=== PATIENT | female | born 1940 | race Caucasian/White ===

== ENCOUNTER → 2018-02-06 13:17 | Outpatient (CLI) | payer MEDICARE, OTHER, SELFPAY | PROVIDERS: PCP Internal Medicine; Visit Provider Psychiatry & Neurology Neurology | DX: Z78.0 Asymptomatic menopausal state (principal); E07.9 Disorder of thyroid, unspecified; Z90.722 Acquired absence of ovaries, bilateral; Z82.62 Family history of osteoporosis; R29.890 Loss of height; Z85.118 Personal history of other malignant neoplasm of bronchus and lung | CPT/HCPCS: 77080 ==

== ENCOUNTER → 2018-04-26 16:27 | Outpatient (CLI) | payer MEDICARE, OTHER, SELFPAY ==
--- NOTE | 2018-04-26 | DI.RAD.S_ITS ---
PROCEDURE: XR THORACIC SPINE 3V INDICATIONS: DORSALGIA TECHNIQUE: 3 views of the thoracic spine were acquired. COMPARISON: None. FINDINGS: Bones: No thoracic compression deformities. Mild level disc desiccation as well small anterior osteophytes are present throughout the thoracic spine. No suspicious bony lesions. 12 pairs of ribs are noted, and appear intact where visualized. Soft tissues: No paravertebral stripe thickening. IMPRESSION: Multilevel degenerative changes. Please see lumbar spine x-ray report of 04/26/18 for details of endplate deformity at L2. Dictated by: Valerie Hamilton M.D. on 04/27/2018 at 14:45 Approved by: Valerie Hamilton M.D. on 04/27/2018 at 14:46
--- NOTE | 2018-04-26 | DI.RAD.S_ITS ---
PROCEDURE: XR LUMBAR SPINE 2-3V INDICATIONS: DORSALGIA TECHNIQUE: 3 views of the lumbar spine were acquired. COMPARISON: [facility], CT, ABDOMEN/PELVIS WITHOUT CONTRAS, 07/04/2013, 10:19. [facility], CR, L-SPINE 2-3 VIEWS, 01/17/2013, 10:54. FINDINGS: Bones: 5 [id number] vertebrae are present. There is trace retrolisthesis of L2 and L3, L3 on L4, L5 on S1. There is moderate disc space narrowing at L4-5, mild to moderate remainder of the lumbar spine. Severe foraminal narrowing is present L5-S1, mild to moderate at L3-4. There is a superior endplate deformity at L2 with an approximate 31% compression. This is new compared to 07/04/13. No vertebral body compression fractures. No suspicious bony lesions. Soft tissues: Overlying bowel gas pattern is normal. No suspicious soft tissue calcifications. IMPRESSION: 1. Multilevel degenerative changes most severe at L4-5 and L5-S1. 2. 31% compression deformity at L2 as above. Chronicity is considered indeterminate. However, it is new compared to most recent prior exam of 07/04/13. Recommend correlation to patient pain and history. If further evaluation is warranted, MRI may be obtained. Dictated by: Valerie Hamilton M.D. on 04/27/2018 at 14:43 Approved by: Valerie Hamilton M.D. on 04/27/2018 at 14:45
--- NOTE | 2018-04-26 | DI.RAD.S_ITS ---
PROCEDURE: XR CERVICAL SPINE 4V OR 5V INDICATIONS: DORSALGIA TECHNIQUE: 5 views of the cervical spine acquired. COMPARISON: [facility], , CERVICAL SPINE 2 OR 3 VIEWS, 01/17/2013, 10:54. FINDINGS: Bones: No fractures or dislocations to the C7-T1 level. There is severe disc space narrowing at C5-6 with trace retrolisthesis. Mild disc space narrowing is present at C4-5 and C6-7. Prominent anterior osteophytes are present at C6 and C7, lesser degree C4 and C3. Oblique images demonstrate foraminal narrowing within the mid thoracic spine. Soft tissues: No prevertebral soft tissue swelling. IMPRESSION: Degenerative changes most prominent at C5-6, demonstrating interval progression compared to prior exam. Dictated by: Valerie Hamilton M.D. on 04/27/2018 at 14:14 Approved by: Valerie Hamilton M.D. on 04/27/2018 at 14:16
== END ==
PROVIDERS: PCP Physician Assistant; Visit Provider Physician Assistant
DX: M50.322 Other cervical disc degeneration at C5-C6 level (principal); M51.36 Other intervertebral disc degeneration, lumbar region; M48.02 Spinal stenosis, cervical region; M51.37 Other intervertebral disc degeneration, lumbosacral region; M48.061 Spinal stenosis, lumbar region without neurogenic claudication; M48.07 Spinal stenosis, lumbosacral region; M51.34 Other intervertebral disc degeneration, thoracic region; M48.04 Spinal stenosis, thoracic region; M54.9 Dorsalgia, unspecified
CPT/HCPCS: 72050; 72072; 72100

== ENCOUNTER → 2018-12-24 16:29 | Outpatient (CLI) | payer MEDICARE, OTHER, SELFPAY ==
--- NOTE | 2018-12-24 | DI.RAD.S_ITS ---
PROCEDURE: XR LUMBAR SPINE 2-3V INDICATIONS: right hip pain TECHNIQUE: 5 views of the lumbar spine were acquired. COMPARISON: [facility], CR, XR LUMBAR SPINE 2-3V, 04/26/2018, 16:35. FINDINGS: Bones: 5 [id number]-dln-[id number] vertebrae are present. Chronic appearing anterior wedge compression deformity involving superior endplate of L2 is again seen with up to 20% loss of L2 vertebral body height anteriorly. There is mild superior endplate compression involving L3 vertebral body, new since previous study. Degenerative endplate changes and bilateral facet arthrosis throughout lumbar spine most prominent at L4-5 and L5-S1 levels are seen. Findings are essentially unchanged from No suspicious bony lesions. Soft tissues: Overlying bowel gas pattern is normal. No suspicious soft tissue calcifications. IMPRESSION: Acute and subacute-appearing mild superior endplate compression at L3 level, new since 2018 study. Chronic appearing anterior wedge compression deformity at L2 level. Degenerative disc disease throughout lower thoracic and lumbar spine. Dictated by: Severino Lara M.D. on 12/24/2018 at 17:05 Approved by: Severino Lara M.D. on 12/24/2018 at 17:07
--- NOTE | 2018-12-24 | DI.RAD.S_ITS ---
PROCEDURE: XR HIP W PEL IF DONE RT 2V INDICATIONS: right hip pain TECHNIQUE: AP pelvis with lateral view(s) of the right hip(s). COMPARISON: None. FINDINGS: Bones: Symmetric-appearing mild bilateral hip joint osteophyte is seen. No fractures or dislocations. Pelvic ring appears intact. No suspicious bony lesions. Soft tissues: The visualized bowel gas pattern is normal. No suspicious soft tissue calcifications. IMPRESSION: Mild bilateral hip joint osteoarthritis. No fracture or dislocation. No evidence of avascular necrosis. Dictated by: Severino Lara M.D. on 12/24/2018 at 17:07 Approved by: Severino Lara M.D. on 12/24/2018 at 17:08
== END ==
PROVIDERS: Visit Provider Internal Medicine
DX: M25.551 Pain in right hip (principal); M16.0 Bilateral primary osteoarthritis of hip; M51.16 Intervertebral disc disorders with radiculopathy, lumbar region
CPT/HCPCS: 72100; 73502

== ENCOUNTER → 2018-12-31 13:32 | Outpatient (CLI) | payer MEDICARE, OTHER, SELFPAY ==
--- NOTE | 2018-12-31 14:20 | DI.CT.S_ITS ---
PROCEDURE: CT CHEST ABD PEL W CON INDICATIONS: HISTORY OF LUNG CANCER TECHNIQUE: After the administration of oral and intravenous contrast, 5 mm thick sections acquired from the lung apices to the symphysis. 5 mm coronal and sagittal reformats were performed, with additional 7 mm coronal MIP reformats through the lungs. For radiation dose reduction, the following was used: automated exposure control, adjustment of mA and/or kV according to patient size. COMPARISON: None. FINDINGS: Image quality: Excellent. CHEST: Lungs and pleura: No acute consolidation. Scattered scarring/atelectasis. Left pneumonectomy postsurgical changes. No pleural effusions or pneumothorax. Central and peripheral airways appear patent and normal in caliber. Mediastinum: Heart size is normal. No pericardial effusion. No mediastinal or hilar adenopathy by size criteria. Thoracic aorta and central pulmonary arteries are normal in size. Esophagus is normal in caliber. No hiatal hernia. Chest wall: No axillary or supraclavicular adenopathy by size criteria. Thyroid gland is within normal limits. ABDOMEN: Solid organs: Low attenuation hepatic cyst on image 66. Gallbladder grossly unremarkable. Biliary system is non dilated. Pancreas enhances normally. Spleen is normal in size and enhancement. No adrenal nodules. Kidneys demonstrate normal size and enhancement, without hydronephrosis. Peritoneum and bowel: Bowel loops demonstrate normal wall thickness and caliber. No free fluid or air. Large amount of stool. Nodes and vessels: No retroperitoneal or mesenteric adenopathy by size criteria. Aorta and inferior vena cava are normal in size. Miscellaneous: No ventral hernias. PELVIS: Genitourinary: Bladder wall thickness is normal. Miscellaneous: No inguinal hernias or adenopathy. Bones: No suspicious bony lesions. No vertebral body compression fractures. IMPRESSION: No specific evidence of recurrent or residual tumor. Cardiomegaly. Hepatic cyst. Dictated by: Low Ny M.D. on 12/31/2018 at 16:24 Approved by: Low Ny M.D. on 12/31/2018 at 16:32
== END ==
PROVIDERS: PCP Internal Medicine; Visit Provider Internal Medicine
DX: I51.7 Cardiomegaly (principal); K76.89 Other specified diseases of liver; Z85.118 Personal history of other malignant neoplasm of bronchus and lung
CPT/HCPCS: 71260; 74177; Q9967

== ENCOUNTER → 2019-02-04 15:12 | Outpatient (CLI) | payer MEDICARE, OTHER, SELFPAY ==
--- NOTE | 2019-02-04 | DI.RAD.S_ITS ---
PROCEDURE: XR TMJ BI INDICATIONS: CANNOT COMPLETELY OPEN AND CLOSE MOUTH TECHNIQUE: 6 view(s) of the temporomandibular joints acquired. COMPARISON: None. FINDINGS: Bones: No fractures or dislocations. No suspicious bony lesions. Soft tissues: No suspicious soft tissue calcifications. IMPRESSION: No dislocation of the temporomandibular joints identified. No aggressive appearing osseous lesion. MRI with contrast Of the TMJ may be helpful for further assessment. Dictated by: Carlos Day M.D. on 02/04/2019 at 17:25 Approved by: Carlos Day M.D. on 02/04/2019 at 17:28
== END ==
PROVIDERS: PCP Internal Medicine; Visit Provider Internal Medicine
DX: M26.609 Unspecified temporomandibular joint disorder, unspecified side (principal)
CPT/HCPCS: 70330

== ENCOUNTER → 2019-09-09 09:59 | Outpatient (CLI) | payer MEDICARE, OTHER, SELFPAY ==
[2019-09-10 09:59] LABS: Osmolality Urine 356 mOsmol/kg (.)
[2019-09-11 12:40] LABS: Albumin 0 % (.); M-Spike % Not Observed % (Not Observed); Protein, Total, 24 hr urine 155 mg/24 hr (30-150); Total Urine Protein 4.2 mg/dL (Not Estab.)
== END ==
PROVIDERS: Family Provider Internal Medicine; PCP Internal Medicine; Referring Provider Internal Medicine; Visit Provider Internal Medicine
DX: R25.2 Cramp and spasm (principal); R79.9 Abnormal finding of blood chemistry, unspecified
CPT/HCPCS: 83935; 84156; 84166

== ENCOUNTER → 2019-10-21 09:36 | Outpatient (CLI) | payer MEDICARE, OTHER, SELFPAY ==
[2019-10-21 11:23] LABS: Collection Time Urine 24 Hours; Creatinine 24 Hour Urine 786 mg/day (800-1800); Creatinine Urine Random 29.1 mg/dL; Protein (Total) Urine Random 13 mg/dL (0-12); Total Protein 24 Hour Urine 351 mg/day (42-225); Total Volume Urine 2700 mL
== END ==
PROVIDERS: Family Provider Internal Medicine; PCP Internal Medicine; Referring Provider Internal Medicine; Visit Provider Internal Medicine
DX: R25.2 Cramp and spasm (principal); R79.9 Abnormal finding of blood chemistry, unspecified
CPT/HCPCS: 82570; 84156

== ENCOUNTER 2020-03-22 11:43 | Emergency (ER) | payer MEDICARE, OTHER, SELFPAY ==
--- NOTE | 2020-03-22 12:03 | DI.RAD.S_ITS ---
PROCEDURE:3 XR HAND RT MIN 3V INDICATIONS: fall TECHNIQUE: 3 views of the hand(s) acquired. COMPARISON: None. FINDINGS: Bones: No fractures or dislocations. Carpal bones are normally aligned. Joint space narrowing and osteophyte formation of the 1st carpometacarpal joint and the 1st metacarpophalangeal joint. There is also joint space narrowing osteophyte formation of the 5th distal interphalangeal joint. No suspicious bony lesions. Soft tissues: No suspicious soft tissue calcifications. IMPRESSION: No acute bony abnormality. Degenerate changes of the hand. Dictated by: Arjun Burkett M.D. on 03/22/2020 at 11:17 Approved by: Arjun Burkett M.D. on 03/22/2020 at 11:20
[2020-03-22 12:05] VITALS: BP 144/70; PULSE 71; RESP 16; TEMP 36.9; O2SAT 98; BMI 23.3
--- NOTE | 2020-03-22 12:55 | DI.RAD.S_ITS ---
PROCEDURE: XR CERVICAL SPINE 2V OR 3V INDICATIONS: pain fall last night TECHNIQUE: 3 view(s) of the cervical spine were acquired. COMPARISON: [facility], CR, XR CERVICAL SPINE 4V OR 5V, 04/26/2018, 16:35. FINDINGS: Bones: No fractures or dislocations to the C7-T1 level. The lateral masses of C1 appear intact on the odontoid view. No suspicious bony lesions. There is multilevel facet arthrosis. Distally there is multilevel intervertebral disc height loss, marked at the C5-6 level. Soft tissues: No prevertebral soft tissue swelling. IMPRESSION: No radiographic evidence of an acute cervical spine fracture. Multilevel cervical spondylosis, most apparent at C5-6. Dictated by: Arjun Burkett M.D. on 03/22/2020 at 12:54 Approved by: Arjun Burkett M.D. on 03/22/2020 at 12:55
--- NOTE | 2020-03-22 12:57 | ED.UPPEXIN ---
HPI - Extremity Injury (Upper) General Chief Complaint: Extremity Injury, Upper Stated Complaint: Fall, Hurt Right Thumb Time Seen by Provider: 03/22/20 12:45 Source: patient Mode of arrival: Ambulatory Limitations: no limitations History of Present Illness HPI narrative: Patient is a 79-year-old female who presents with right hand and thumb pain. She slipped on the bathroom rug last evening falling catching herself with her hand. She immediately had pain in her right thenar eminence. She iced it and took some Aleve. Last night it was throbbing no. Today she complains of increased pain. No numbness or tingling. She also has had complaining of some cervical pain as well. She denies any head injury or loss of consciousness MD complaint: injury to: right and hand Onset (ago): hour(s) Related Data Home Medications Medication Instructions Recorded Confirmed [OXYCODONE] #0 03/13/16 [PREDNISONE] #0 03/13/16 hydrocodone-acetaminophen 1 tab PO Q4HP PRN #0 tab 03/13/16 levothyroxine [Synthroid] 137 mcg PO QAM #0 tab 03/13/16 liothyronine [Cytomel] 5 mcg PO BID #0 tab 03/13/16 sertraline 75 mg PO QDAY #0 tab 03/13/16 prochlorperazine maleate 5 mg PO #0 05/30/16 [Compazine] prochlorperazine maleate PO #0 05/30/16 [Compazine] Previous Rx's Medication Instructions Recorded fluconazole [Diflucan] 150 mg PO QDAY #2 tab 03/13/16 nitrofurantoin monohyd/m-cryst 100 mg PO Q12H #10 cap 03/13/16 [Macrobid] Allergies Allergy/AdvReac Type Severity Reaction Status Date / Time doxycycline [DOXYCYCLINE] Allergy Mild RASH Unverified 01/22/20 08:54 ondansetron Allergy Mild HALLUNCINAT Unverified 01/22/20 08:54 [From ZOFRAN ( IONS HYDROCHLORIDE)] Sulfa (Sulfonamide Allergy Mild RASH Unverified 01/22/20 08:54 Antibiotics) [SULFA (SULFONAMIDE ANTIBIOTICS)] Review of Systems Review of Systems Narrative: GENERAL: Denies chills, fatigue, malaise, fever, sweats, travel HEENT: Denies sinus pain, ear pain, sore throat, difficulty swallowing, neck pain RESPIRATORY: Denies dyspnea, cough, wheezing, hemoptysis, sputum. CARDIOVASCULAR: Denies chest pain, palpitations, orthopnea, edema GASTROINTESTINAL: Denies nausea, vomiting, abdominal pain, diarrhea, constipation, melena. : Denies dysuria, frequency, incontinence, hematuria, urinary retention, flank pain. MUSCULOSKELETAL: See HPI SKIN: No rash, no erythema, no pruritus NEUROLOGIC: Denies weakness, dizziness, headache, numbness, change in speech, confusion PSYCHIATRIC: No concerning psychosocial issues. 12 point review of systems is negative except for those stated above and HPI Patient History Social History Smoking Status: Never smoker Smoking Status: Never smoker alcohol intake frequency: 0-2 drinks per day Alcohol type: wine Substance Use Type: does not use Exam Initial Vital Signs Initial Vital Signs: Vital Signs Temperature 98.4 F 03/22/20 12:05 Pulse Rate 71 03/22/20 12:05 Respiratory Rate 16 03/22/20 12:05 Blood Pressure 144/70 H 03/22/20 12:05 Pulse Oximetry 98 03/22/20 12:05 GENERAL: Well-appearing, well-nourished and in no acute distress. HEENT: Head atraumatic,EOMI, pupils reactive, face symmetric, moist mucous membranes Neck: Mild midline vertebral tenderness throughout but no localization more paracervical muscle tenderness bilaterally. No step-off CARDIOVASCULAR: Regular rate and rhythm without murmurs, rubs or gallops. RESPIRATORY: Breath sounds equal bilaterally, no wheezes rales or rhonchi. EXTREMITIES: Normal range of motion, no clubbing or edema. Swelling contusion noted in right thenar eminence Neurovascularly intact. NEUROLOGICAL: Alert and oriented x4.Normal gait and speech. SKIN: Warm, dry, no laceration, no petechiae, no rashes or lesions. Course Orders Ordered: ED Orders 03/22/20 12:03 XR hand RT min 3V Stat 03/22/20 12:55 XR cervical spine 2V or 3V Stat Vital Signs Vital signs: Vital Signs - 8 hr 03/22/20 12:05 03/22/20 14:03 Temperature 98.4 F Pulse Rate 71 80 Respiratory Rate 16 16 Blood Pressure 144/70 H 136/78 Pulse Oximetry 98 97 MDM - Extremity Injury (Upper) Imaging Data Extremity x-ray #1: Radiologist's Impression: PROCEDURE:3 XR HAND RT MIN 3V INDICATIONS: fall TECHNIQUE: 3 views of the hand(s) acquired. COMPARISON: None. FINDINGS: Bones: No fractures or dislocations. Carpal bones are normally aligned. Joint space narrowing and osteophyte formation of the 1st carpometacarpal joint and the 1st metacarpophalangeal joint. There is also joint space narrowing osteophyte formation of the 5th distal interphalangeal joint. No suspicious bony lesions. Soft tissues: No suspicious soft tissue calcifications. IMPRESSION: No acute bony abnormality. Degenerate changes of the hand. Dictated by: Arjun Burkett M.D. on 03/22/2020 at 11:17 XR cervical: Radiologist's Impression: PROCEDURE: XR CERVICAL SPINE 2V OR 3V INDICATIONS: pain fall last night TECHNIQUE: 3 view(s) of the cervical spine were acquired. COMPARISON: [facility], XR CERVICAL SPINE 4V OR 5V, 04/26/2018, 16:35. FINDINGS: Bones: No fractures or dislocations to the C7-T1 level. The lateral masses of C1 appear intact on the odontoid view. No suspicious bony lesions. There is multilevel facet arthrosis. Distally there is multilevel intervertebral disc height loss, marked at the C5-6 level. Soft tissues: No prevertebral soft tissue swelling. IMPRESSION: No radiographic evidence of an acute cervical spine fracture. Multilevel cervical spondylosis, most apparent at C5-6. Dictated by: Arjun Burkett M.D. on 03/22/2020 at 12:54 Approved by: Arjun Burkett M.D. on 03/22/2020 at 12:55 Discharge Plan Departure Patient Disposition: Home Clinical Impression: Contusion of hand, right Qualifiers: Encounter type: initial encounter Qualified Code(s): S60.221A - Contusion of right hand, initial encounter Cervical muscle strain Qualifiers: Encounter type: initial encounter Qualified Code(s): S16.1XXA - Strain of muscle, fascia and tendon at neck level, initial encounter Discharge Date/Time: 03/22/20 14:03 Instructions: Contusion Activity Restrictions/Additional Instructions: *You have been diagnosed with right hand contusion and cervical strain *What to do: Elevate arm to help with swelling may ice 20-30 minutes at a time then removed *Continue to take medications as directed Aleve 250 mg every 6 hours if needed for pain *Follow up with your primary care provider in 2-3 days *Return to ER if you should have increased pain numbness tingling or weakness or any new, worsening or concerning symptoms Prescriptions: No Action levothyroxine [Synthroid] 137 MCG tablet 137 mcg PO QAM Qty: 0 RF: 0 liothyronine [Cytomel] 5 MCG tablet 5 mcg PO BID Qty: 0 RF: 0 sertraline 50 MG tablet 75 mg PO QDAY Qty: 0 RF: 0 hydrocodone-acetaminophen 7.5 MG/325 MG tablet 1 tab PO Q4HP PRNQty: 0 RF: 0 [OXYCODONE] Qty: 0 RF: 0 [PREDNISONE] Qty: 0 RF: 0 fluconazole [Diflucan] 150 MG tablet 150 mg PO QDAY Qty: 2 RF: 0 nitrofurantoin monohyd/m-cryst [Macrobid] 100 MG capsule 100 mg PO Q12H Qty: 10 RF: 0 prochlorperazine maleate [Compazine] 5 mg tablet PO Qty: 0 RF: 0 prochlorperazine maleate [Compazine] 5 MG tablet 5 mg PO Qty: 0 RF: 0 Referrals: Shereen Coronado MD [Primary Care Provider] -
[2020-03-22 14:03] VITALS: BP 136/78; PULSE 80; RESP 16; O2SAT 97
== END 2020-03-22 14:03 | disposition home or self-care (01) ==
PROVIDERS: Emergency Provider Emergency Medicine; Family Provider Internal Medicine; PCP Internal Medicine
DX: S60.221A Contusion of right hand, initial encounter (principal); S16.1XXA Strain of muscle, fascia and tendon at neck level, initial encounter; W19.XXXA Unspecified fall, initial encounter
CPT/HCPCS: 72040; 73130; 99283

== ENCOUNTER 2020-05-24 09:34 | Emergency (ER) | payer MEDICARE, OTHER, SELFPAY ==
[2020-05-24] VITALS (38 sets, daily range): BP systolic 113–176; BP diastolic 52–101; PULSE 72–162; RESP 14–37; O2SAT 92–99; BMI 23.6
--- NOTE | 2020-05-24 09:27 | ED.CHESTPAIN ---
HPI - Chest Pain General Chief Complaint: Chest Pain Stated Complaint: Chest Pain [id number] Time Seen by Provider: 05/24/20 09:38 Source: patient, family () and EMS Mode of arrival: EMS Limitations: no limitations History of Present Illness HPI narrative: This is a 79-year-old female who comes to the emergency department with complaint of chest pain and shortness of breath intermittently for the last 6 weeks. Patient states it does seem to be more positional particularly when she is lying flat. Patient states that the episode today was longer in duration than typical. Typically they were 20-30 minutes. She has not had any fevers. Today she did note that she had a headache that quickly resolved. She noted that she was short of breath particularly in flat with chest pressure she initially noticed about 1:00 a.m. this morning may use several pillows to prop her up which helped but then again this morning she felt significantly short of breath and EMS was contacted. She also noted that she had a cough which was new and she produced some yellow thick sputum. No hemoptysis. She has had some slight nausea but no vomiting. She had some mild diarrhea today but no black or bloody stool. No urinary symptoms. No swelling in her extremities. She had been in contact with primary care and her cardiothoracic surgeon, they had her evaluated by Cardiology and she had a perfusion stress test which is negative for ischemia by symptom and EKG criteria there were PACs, PVCs and ventricular couplets present. Normal exercise tolerance perfusion imaging showed no evidence of myocardial ischemia or injury gated SP ECT showed mildly dilated left ventricle with moderate global hypokinesis and estimated EF of 39% with normal wall motion. An intermediate risk stress imaging study. There is also incidental finding of focal radioisotope 8 uptake in the right upper chest wall which her CVT surgeon stated was her port. She has not had her actual follow-up visit by telemedicine with the canvas shop laborer but does have the report with her today. Patient has a history significant for lung cancer with a mass removed 10 years ago, lymphoma approximately 4 years ago she was treated with chemo and has completed her therapy. She still has a port present. She does currently take any anticoagulants, cholesterol, diabetes or hypertension medications. She does take a hypothyroid medication, cytomel and daily for chronic shoulder pain. Related Data Home Medications Medication Instructions Recorded Confirmed [OXYCODONE] #0 03/13/16 [PREDNISONE] #0 03/13/16 hydrocodone-acetaminophen 1 tab PO Q4HP PRN #0 tab 03/13/16 05/24/20 levothyroxine [Synthroid] 137 mcg PO QAM #0 tab 03/13/16 05/24/20 liothyronine [Cytomel] 5 mcg PO BID #0 tab 03/13/16 05/24/20 sertraline 100 mg PO QDAY #0 tab 03/13/16 05/24/20 prochlorperazine maleate 5 mg PO #0 05/30/16 [Compazine] prochlorperazine maleate PO #0 05/30/16 [Compazine] atenolol 25 mg PO BID 05/24/20 05/24/20 dextroamphetamine-amphetamine 10 mg PO BID 05/24/20 05/24/20 Previous Rx's Medication Instructions Recorded fluconazole [Diflucan] 150 mg PO QDAY #2 tab 03/13/16 nitrofurantoin monohyd/m-cryst 100 mg PO Q12H #10 cap 03/13/16 [Macrobid] Allergies Allergy/AdvReac Type Severity Reaction Status Date / Time Sulfa (Sulfonamide Allergy Severe RASH Verified 05/24/20 17:49 Antibiotics) [SULFA (SULFONAMIDE ANTIBIOTICS)] doxycycline [DOXYCYCLINE] Allergy Mild RASH Verified 05/24/20 17:46 ondansetron Allergy Mild HALLUNCINAT Verified 05/24/20 17:46 [From ZOFRAN ( IONS HYDROCHLORIDE)] clarithromycin AdvReac Verified 05/24/20 17:46 nitrofurantoin AdvReac Verified 05/24/20 17:47 Review of Systems Review of Systems ROS Unobtainable: All systems reviewed & are unremarkable except as noted in HPI and below Patient History Social History Smoking Status: Never smoker Exam Narrative Exam Narrative: GENERAL: Alert and oriented x three, well-nourished female in moderate distress. HEENT: Head normocephalic, atraumatic, EOMI, pupils reactive, face symmetric, moist mucous membranes NECK: Supple, full range of motion CARDIOVASCULAR: Regular rate and rhythm without murmurs, rubs or gallops. Mild JVD. No swelling bilateral lower extremities. Port is present on anterior chest with no signs of infection. RESPIRATORY: Breath sounds equal bilaterally, no wheezes rales or rhonchi. Positive for tachypnea, no accessory muscle use patient is able to speak in full sentences but does sound slightly out of breath ABDOMEN: Soft, nontender. Normoactive bowel sounds all 4 quadrants. No guarding or rebound, rigidity, no mass : No CVA tenderness EXTREMITIES: Normal range of motion, no clubbing or edema. Neurovascularly intact NEUROLOGICAL: Cranial nerves II through XII grossly intact. Moving all extremities SKIN: Warm, dry, no petechiae, no rashes or lesions. Initial Vital Signs Initial Vital Signs: Vital Signs Pulse Rate 97 H 05/24/20 09:26 Respiratory Rate 18 05/24/20 09:26 Blood Pressure 176/95 H 05/24/20 09:26 Pulse Oximetry 98 05/24/20 09:26 Course Orders Ordered: ED Orders 05/24/20 09:50 COVID19 Stat 05/24/20 09:58 XR chest 1V Stat EKG-12 Lead Stat 05/24/20 10:10 Complete Blood Count AUTO DIFF Stat Comprehensive Metabolic Panel Stat D Dimer Stat Lipase Stat NT-proBNP (BNP-Adult 18+) Stat Partial Thromboplastin Time Stat Procalcitonin Stat Prothrombin Time INR Stat Troponin & CK Cardiac Panel Stat 05/24/20 11:20 CT angio chest PE protocol Stat 05/24/20 14:31 Troponin I Stat 05/24/20 14:41 EKG-12 Lead Stat Sodium Chloride (Normal Saline 0.9%) 1,000 mls @ 125 mls/hr IV CONT CHINYERE Last Admin: 05/24/20 15:04 Dose: 125 mls/hr Documented by: KELI Amiodarone HCl/Dextrose (Nexterone) 360 mg in 200 mls @ 33.333 mls/hr IV NOW ONE; Protocol Stop: 05/24/20 21:58 Last Admin: 05/24/20 16:27 Dose: 33.333 mls/hr, 33.33 mls/hr Documented by: KELI Discontinued Medications Amiodarone HCl (Amiodarone 150 Mg/3 Ml Vial) 300 mg IV NOW ONE Stop: 05/24/20 15:21 Last Admin: 05/24/20 15:27 Dose: 300 mg Documented by: KELI Aspirin (Aspirin 81 Mg Chew Tab) 161 mg PO NOW ONE Stop: 05/24/20 09:59 Last Admin: 05/24/20 10:33 Dose: 161 mg Documented by: RACHELE Furosemide (Furosemide 100 Mg/10 Ml Vial) 60 mg IV NOW ONE Stop: 05/24/20 11:20 Last Admin: 05/24/20 11:40 Dose: 60 mg Documented by: KELI Sodium Chloride (Normal Saline 0.9%) 1,000 mls @ 150 mls/hr IV CONT CHINYERE Last Infusion: 05/24/20 11:53 Dose: 0 mls/hr Documented by: Admin: 05/24/20 10:33 Dose: 150 mls/hr Documented by: RACHELE Lidocaine HCl (Lidocaine 1% (Pf)) 2 ml SUBCUT NOW ONE Stop: 05/24/20 09:32 Last Admin: 05/24/20 10:18 Dose: 2 ml Documented by: RACHELE Nitroglycerin (Nitroglycerin 0.4 Mg Sl Tab) 0.4 mg SL NOW ONE Stop: 05/24/20 13:15 Last Admin: 05/24/20 13:21 Dose: 0.4 mg Documented by: KELI Tizanidine HCl (Tizanidine 4 Mg Tablet) 2 mg PO BEDTIME CHINYERE Tizanidine HCl (Tizanidine 4 Mg Tablet) 2 mg PO NOW ONE Stop: 05/24/20 14:11 Last Admin: 05/24/20 14:25 Dose: 2 mg Documented by: KELI Reevaluation(s) Reevaluation #1: updated patient, on current findings. We did discuss case with Cardiology from [facility] as she recently had a myocardial perfusion stress and echo and has follow-up tomorrow with Dr. Mcleod. Patient is feeling significantly better after Lasix and 1 nitro for blood pressure/chf. Time: 13:05 Reevaluation #2: Patient was standing to the commode when she had tachycardia which initially peer to be V-tach but may be sinus tach with a right bundle branch cleared rate was 158 with AL 66 and a QRS of 149 and QTC of 403. Patient heart rate slowly improved on its own after lying her back down and does not show significant new ST changes but she is having intermittent elevation of her rate while lying flat into the 120's. Time: 15:30 Consultations Consultation #1: Spoke with cardiology Dr. Mccallum. If patient is continuing to do well plan to DC home with follow-up with Cardiology tomorrow and p.o. Lasix 40 mg daily. Time: 13:48 Time: 15:31 Consultation #3: Call back to Cardiology and spoke with Dr. card again. Patient had what appeared to possibly be a wide complex tachycardia that persisted for 5-10 minutes, she does have a right bundle branch block normally on EKG. This resolved slowly into the rate of 90s but then patient again elevated her heart rate into the 100-120 range it appeared to be a sinus rhythm although occasionally could see what appear to be ectopic beats. Time: 15:56 Additional Consultation(s): Spoke with Dr. Awad, hospitalist at [facility] who accepts for transfer plan to continue amiodarone, diuresis needed and cardiology consultation. Patient's rate has improved typically does 70s to 80s but occasionally jumps up to the 120 range. Patient is also feeling significantly better after amiodarone drip was started. Vital Signs Vital signs: Vital Signs - 8 hr 05/24/20 10:30 05/24/20 11:00 05/24/20 11:30 Pulse Rate 92 H 96 H 89 Respiratory Rate 23 37 H Blood Pressure 164/77 H 162/79 H 162/84 H Pulse Oximetry 95 95 98 05/24/20 12:00 05/24/20 12:04 05/24/20 12:30 Pulse Rate 105 H 97 H 96 H Respiratory Rate 26 H 26 H 24 Blood Pressure 168/79 H 157/82 H Pulse Oximetry 96 96 94 05/24/20 13:00 05/24/20 13:16 05/24/20 13:21 Pulse Rate 91 H 89 100 H Respiratory Rate 19 18 Blood Pressure 162/76 H 147/79 H 147/79 H Pulse Oximetry 92 95 05/24/20 13:30 05/24/20 14:00 05/24/20 14:30 Pulse Rate 99 H 92 H 92 H Respiratory Rate 22 18 31 H Blood Pressure 137/82 148/73 H Pulse Oximetry 93 96 95 05/24/20 14:43 05/24/20 15:00 05/24/20 15:13 Pulse Rate 162 H 85 83 Respiratory Rate 24 14 18 Blood Pressure 152/87 H 140/72 141/78 H Pulse Oximetry 96 97 97 05/24/20 15:20 05/24/20 15:30 05/24/20 15:31 Pulse Rate 121 H 115 H 116 H Respiratory Rate 16 19 22 Blood Pressure 144/90 H 140/96 H Pulse Oximetry 98 97 97 05/24/20 15:40 05/24/20 15:59 05/24/20 16:00 Pulse Rate 119 H 108 H 107 H Respiratory Rate 19 22 20 Blood Pressure 145/93 H 143/64 H Pulse Oximetry 97 97 97 05/24/20 16:01 05/24/20 16:10 05/24/20 16:21 Pulse Rate 105 H 101 H 101 H Respiratory Rate 18 21 22 Blood Pressure 118/72 128/75 135/68 Pulse Oximetry 96 97 97 05/24/20 16:30 05/24/20 16:40 05/24/20 17:00 Pulse Rate 103 H 81 79 Respiratory Rate 27 H 32 H 19 Blood Pressure 129/98 H 131/69 Pulse Oximetry 97 98 97 05/24/20 17:10 05/24/20 17:20 05/24/20 17:30 Pulse Rate 72 81 79 Respiratory Rate 21 22 23 Blood Pressure 128/72 127/69 127/71 Pulse Oximetry 98 97 98 05/24/20 17:40 05/24/20 17:51 Pulse Rate 75 80 Respiratory Rate 19 20 Blood Pressure 136/74 113/52 L Pulse Oximetry 98 98 MDM - Chest Pain Lab Data Attestation: I reviewed the patient's lab results. Result diagrams: 05/24/20 10:10 05/24/20 10:10 Labs: Lab Results 05/24/20 05/24/20 05/24/20 Range/Units 09:50 10:10 10:10 WBC 8.3 (4.5-11.0) X10^3/uL RBC 4.15 (4.0-5.2) X10^6/uL Hgb 13.4 (12.0-16.0) g/dL Hct 39.6 (36-46) % MCV 95.3 (80-100) fL MCH 32.4 (26-34) PG MCHC 33.9 (30-36) % RDW 12.7 (11.6-14.8) % Plt Count 206 (150-400) X10^3/uL Neut % (Auto) 73.5 (50-75) % Lymph % (Auto) 14.6 L (25-40) % [place] % (Auto) 10.0 (3-14) % Eos % (Auto) 1.3 L (2-4) % Baso % (Auto) 0.6 (0-2) % Neut # (Auto) 6100 (3106-0717) /uL Lymph # (Auto) 1200 (5085-0411) /uL [place] # (Auto) 800 (0-900) /uL Eos # (Auto) 100 (0-450) /uL Baso # (Auto) 0 (0-100) /uL PT 9.8 L (10.1-12.7) SECONDS INR 0.9 (0.9-1.3) APTT 51 H (26.4-36.2) SECONDS D-Dimer 252 H (<230) ng/mL Sodium (137-145) mmol/L Potassium (3.4-5.1) mmol/L Chloride (98-107) mmol/L Carbon Dioxide (22-32) mmol/L BUN (7-17) mg/dL Creatinine (0.52-1.04) mg/dL Estimated GFR (>60) mL/min BUN/Creatinine Ratio (6-22) Glucose (80-110) mg/dL Calcium (8.4-10.2) mg/dL Total Bilirubin (0.2-1.3) mg/dL AST (14-36) IU/L ALT (<35) IU/L Alkaline Phosphatase (38-126) U/L Total Creatine Kinase (30-135) U/L CK-MB (CK-2) CK-MB (CK-2) Rel Index Troponin I (0.01-0.034) ng/mL NT-Pro-B Natriuret Pep (<450) pg/mL Total Protein (6.3-8.2) g/dL Albumin (3.5-5.0) g/dL Globulin (1.7-4.1) g/dL Albumin/Globulin Ratio (1.0-2.8) Lipase (23-300) U/L Procalcitonin (<0.5) ng/mL COVID-19 PCR Negative (Negative) 05/24/20 05/24/20 05/24/20 Range/Units 10:10 10:10 14:31 WBC (4.5-11.0) X10^3/uL RBC (4.0-5.2) X10^6/uL Hgb (12.0-16.0) g/dL Hct (36-46) % MCV (80-100) fL MCH (26-34) PG MCHC (30-36) % RDW (11.6-14.8) % Plt Count (150-400) X10^3/uL Neut % (Auto) (50-75) % Lymph % (Auto) (25-40) % [place] % (Auto) (3-14) % Eos % (Auto) (2-4) % Baso % (Auto) (0-2) % Neut # (Auto) (1852-0412) /uL Lymph # (Auto) (9934-1710) /uL [place] # (Auto) (0-900) /uL Eos # (Auto) (0-450) /uL Baso # (Auto) (0-100) /uL PT (10.1-12.7) SECONDS INR (0.9-1.3) APTT (26.4-36.2) SECONDS D-Dimer (<230) ng/mL Sodium 139 (137-145) mmol/L Potassium 4.4 (3.4-5.1) mmol/L Chloride 106 (98-107) mmol/L Carbon Dioxide 28 (22-32) mmol/L BUN 28 H (7-17) mg/dL Creatinine 0.46 L (0.52-1.04) mg/dL Estimated GFR > 60.0 (>60) mL/min BUN/Creatinine Ratio 60.9 H (6-22) Glucose 122 H (80-110) mg/dL Calcium 9.2 (8.4-10.2) mg/dL Total Bilirubin 0.4 (0.2-1.3) mg/dL AST 40 H (14-36) IU/L ALT 27 (<35) IU/L Alkaline Phosphatase 82 (38-126) U/L Total Creatine Kinase 60 (30-135) U/L CK-MB (CK-2) TNP CK-MB (CK-2) Rel Index TNP Troponin I < 0.012 < 0.012 (0.01-0.034) ng/mL NT-Pro-B Natriuret Pep 2140 H (<450) pg/mL Total Protein 7.2 (6.3-8.2) g/dL Albumin 4.3 (3.5-5.0) g/dL Globulin 2.9 (1.7-4.1) g/dL Albumin/Globulin Ratio 1.5 (1.0-2.8) Lipase 63 (23-300) U/L Procalcitonin < 0.05 (<0.5) ng/mL COVID-19 PCR (Negative) Imaging Data Chest x-ray: Radiologist's Impression: [place] [id number] [place] [id number] ReportSigned Patient: Ashleigh CraigMR#: [id number]: 3Acct:[id number]/Sex: 79 / FDate of Service: 05/24/20Loc: EDAccession Number: [id number] Procedure: XR chest 1V Ordering Provider: Elvia Christie D.O. PROCEDURE: XR CHEST 1V INDICATIONS: Short of breath, chest pain, orthopnea, hx lung ca/lymphoma, + port TECHNIQUE: One view of the chest was acquired. COMPARISON: [facility], CT, CT CHEST ABD PEL W CON, 12/31/2018, 14:29. [facility], CR, CHEST 1 VIEW, 04/30/2016, 12:32. [facility], CR, CHEST 1 VIEW, 05/30/2016, 20:51. [facility], CHEST 1 VIEW, 06/13/2016, 13:10. FINDINGS: Surgical changes and devices: There is a stable right-sided chest port. Lungs and pleura: Diffuse interstitial prominence is seen. There is a small left-sided pleural effusion. No pneumothorax is seen. Low lung volumes are noted. This causes a crowded appearance to the lung markings and limits evaluation. A left medial pulmonary staple line is faintly seen. Mediastinum: Mediastinal contours appear normal. Heart size is mildly enlarged. Bones and chest wall: No suspicious bony lesions. Age-appropriate bony degenerative changes are seen. Overlying soft tissues appear unremarkable. IMPRESSION: Mild cardiomegaly and interstitial prominence. Please consider CHF. Postoperative and degenerative changes are seen. Dictated by: Genaro Marquez M.D. on 05/24/2020 at 10:14 Approved by: Genaro Marquez M.D. on 05/24/2020 at 10:16 CT scan - chest: Radiologist's Impression: Ashleigh Craig 79 F [address] [id number] Scan ReportSigned Patient: Ashleigh CraigMR#: [id number]: 1940cct:[id number]/Sex: 79 / FDate of Service: 05/24/20Loc: EDAccession Number: [id number] Procedure: CT angio chest PE protocol Ordering Provider: Elvia Christie D.O. PROCEDURE: CT ANGIO CHEST PE PROTOCOL INDICATIONS: chf, chest pain, hx lymphoma and lung ca treated, + port TECHNIQUE: After the administration of intravenous contrast, 2 mm thick sections acquired from the pulmonary apices to the posterior costophrenic angles. 3-dimensional maximum intensity projection (MIP) coronal and sagittal reformats were then acquired through the thorax. For radiation dose reduction, the following was used: automated exposure control, adjustment of mA and/or kV according to patient size. COMPARISON: [facility], CT, CHEST ABDOMEN WITH CONTRAST, 07/27/2009, 9:48. [facility], CT, THORAX WITH CONTRAST, 06/06/2008, 9:08. [facility], CT, CT CHEST ABD PEL W CON, 12/31/2018, 14:29. FINDINGS: Image quality: Excellent. Pulmonary arteries: Pulmonary arteries are normal in size, and demonstrate no intraluminal filling defects to suggest central pulmonary embolism. Lungs and pleura: Postoperative changes seen, with partial left pneumonectomy, with a staple line seen within the left infrahilar region posteriorly. There is a small right-sided pleural effusion. A small left-sided pleural effusion is seen, with partial loculation superiorly and posteriorly. Mild dependent atelectasis is seen. No felipe focal infiltrates are seen. No pneumothorax is seen. The central airways are patent. Mediastinum: Heart size is mildly enlarged, without pericardial effusion. No mediastinal or hilar adenopathy. Thoracic aorta is normal in caliber and enhancement. Esophagus is normal in caliber, without hiatal hernia. Bones and chest wall: No suspicious bony lesions. Ribs and thoracic spine appear intact throughout. Thyroid gland is small in size. No axillary or supraclavicular adenopathy. Note is made of a prominent right jugular vein, which is similar to the prior in 2019 and not regarded to be pathologic. A right-sided chest port is seen. Abdomen: Visualized upper abdominal solid organs appear normal in the early arterial phase of enhancement. IMPRESSION: Negative for pulmonary embolism. Small bilateral pleural effusions are seen, with partial loculation seen on the left. Prior left partial pneumonectomy, with an infrahilar staple line seen. No enlarged lymph nodes are seen. Mild cardiomegaly. Incidental note is made of: Prominent right jugular vein Right-sided chest port Dictated by: Genaro Marquez M.D. on 05/24/2020 at 11:04 Approved by: Genaro Marquez M.D. on 05/24/2020 at 11:10 ECG Data Attestation: I personally reviewed and interpreted this ECG as follows: Prior ECG tracings: available for review Interpretation: Sinus rhythm rate of 93, AL 159, QRS of 157 QTC of 476. RBBB, LAD. Nonspecific change. Prior EKG from 04/30/2016 does not show right bundle. EKG 2. Shows tachycardia with a rate of 158, P are 66 and QRS of 149 with a QTC of 403. Patient does have a right bundle branch block, it does appear regular. No new ST changes appreciated. EKG 3. Shows sinus rhythm rate of 86, P are 161, QRS of 158 QTC of 484. It does appear to be P-waves with the majority of associated with complexes but difficult to know in some lateral leads. Right bundle branch is still present no new ST changes appreciated. EKG 4. Shows AFib with RVR rate of 100, QRS of 164 and QTC of 480. Irregularly irregular rhythm with right bundle branch. MDM Narrative Medical decision making narrative: 79-year-old female comes emergency department with intermittent chest pain and shortness of breath with a perfusion test showing mildly dilated left ventricle with moderate global hypokinesis and EF of 39% but no clear myocardial ischemic changes. Patient has multiple potential causes of her symptoms including coronary artery disease, CHF, adverse cardiac function secondary to prior chemotherapeutic agents, pneumonia, COVID as well as possibly embolic causes. Patient's labs are reflective of CHF. CT angiography was included as she is high risk for pulmonary emboli. EKG shows a new right bundle branch from 2016. Troponin is negative. CTA shows some loculated pleural effusion, negative for PE and mild cardiomegaly. Patient was feeling much better, when she stood to use the bedside commode she became diaphoretic felt more short of breath had chest pressure again and her heart rate increased to 150. There was concern for V-tach although she does have a right bundle-branch block, patient very slowly improved her heart rate over 10 minutes into the 90 range but then would intermittently jump into the 120s and became more consistent in the 120 range. Initially we were unable to catch any episodes of atrial fibrillation but were ultimately able to catch 1. Re-consult with [facility] Cardiology and they recommended to continue amiodarone at this time and plan for transfer secondary to CHF with new cardiac dysrhythmia. Patient did state very remotely 15-20 years she may have had atrial fibrillation but they could never capture it enough for an ablation or treatment and she stopped the oral at occasion for AFib many years ago. Discussed with Dr. Awad who kindly accepts for transfer. Critical Care Time Critical Care Time Critical Care Time: Yes Total Critical Care Time: 60 Attestation: The high probability of a clinically significant, sudden or life threatening deterioration of the cardiac system(s) required my full and direct attention, intervention and personal management. The aggregate critical care time was [60] minutes. This time is in addition to time spent performing reported procedures but includes the following: [x] Data Review and interpretation [x] Patient assessment and monitoring of vital signs [x] Documentation [x] Medication orders and management Discharge Plan Departure Patient Disposition: [facility] Clinical Impression: CHF (congestive heart failure), Pleural effusion, Atrial fibrillation with rapid ventricular response Prescriptions: No Action levothyroxine [Synthroid] 137 MCG tablet 137 mcg PO QAM Qty: 0 RF: 0 liothyronine [Cytomel] 5 MCG tablet 5 mcg PO BID Qty: 0 RF: 0 sertraline 50 MG tablet 100 mg PO QDAY Qty: 0 RF: 0 hydrocodone-acetaminophen 7.5 MG/325 MG tablet 1 tab PO Q4HP PRN (Reason: Pain (Scale Score 1-3)) Qty: 0 RF: 0 [OXYCODONE] Qty: 0 RF: 0 [PREDNISONE] Qty: 0 RF: 0 fluconazole [Diflucan] 150 MG tablet 150 mg PO QDAY Qty: 2 RF: 0 nitrofurantoin monohyd/m-cryst [Macrobid] 100 MG capsule 100 mg PO Q12H Qty: 10 RF: 0 prochlorperazine maleate [Compazine] 5 mg tablet PO Qty: 0 RF: 0 prochlorperazine maleate [Compazine] 5 MG tablet 5 mg PO Qty: 0 RF: 0 dextroamphetamine-amphetamine 10 mg tablet 10 mg PO BID RF: 0 atenolol 25 mg tablet 25 mg PO BID RF: 0 Referrals: Shereen Coronado MD [Primary Care Provider] -
--- NOTE | 2020-05-24 09:58 | DI.RAD.S_ITS ---
PROCEDURE: XR CHEST 1V INDICATIONS: Short of breath, chest pain, orthopnea, hx lung ca/lymphoma, + port TECHNIQUE: One view of the chest was acquired. COMPARISON: [facility], CT, CT CHEST ABD PEL W CON, 12/31/2018, 14:29. [facility], CR, CHEST 1 VIEW, 04/30/2016, 12:32. [facility], CR, CHEST 1 VIEW, 05/30/2016, 20:51. [facility], CR, CHEST 1 VIEW, 06/13/2016, 13:10. FINDINGS: Surgical changes and devices: There is a stable right-sided chest port. Lungs and pleura: Diffuse interstitial prominence is seen. There is a small left-sided pleural effusion. No pneumothorax is seen. Low lung volumes are noted. This causes a crowded appearance to the lung markings and limits evaluation. A left medial pulmonary staple line is faintly seen. Mediastinum: Mediastinal contours appear normal. Heart size is mildly enlarged. Bones and chest wall: No suspicious bony lesions. Age-appropriate bony degenerative changes are seen. Overlying soft tissues appear unremarkable. IMPRESSION: Mild cardiomegaly and interstitial prominence. Please consider CHF. Postoperative and degenerative changes are seen. Dictated by: Genaro Marquez M.D. on 05/24/2020 at 10:14 Approved by: Genaro Marquez M.D. on 05/24/2020 at 10:16
[2020-05-24] MEDS: LIDOCAINE 1% (PF) 2 ML SUBCUT (10:18)
[2020-05-24 10:19] LABS: Add Manual Diff / Slide Review NO; Basophils Absolute Auto 0 /uL (0-100); Basophils Percent Auto 0.6 % (0-2); Eosinophils Absolute Auto 100 /uL (0-450); Eosinophils Percent Auto 1.3 % (2-4); Hematocrit 39.6 % (36-46); Hemoglobin 13.4 g/dL (12.0-16.0); Lymphocytes Absolute Auto 1200 /uL (1100-4500); Lymphocytes Percent Auto 14.6 % (25-40); Mean Corpuscular HGB Conc 33.9 % (30-36); Mean Corpuscular Hemoglobin 32.4 PG (26-34); Mean Corpuscular Volume 95.3 fL (80-100); Monocytes Absolute Auto 800 /uL (0-900); Neutrophils Absolute Auto 6100 /uL (1500-7000); Neutrophils Percent Auto 73.5 % (50-75); Platelet Count 206 X10^3/uL (150-400); Red Blood Cell Count 4.15 X10^6/uL (4.0-5.2); Red Cell Distribution Width 12.7 % (11.6-14.8); White Blood Cell Count 8.3 X10^3/uL (4.5-11.0)
[2020-05-24 10:23] LABS: INR 0.9 (0.9-1.3); Prothrombin Time 9.8 SECONDS (10.1-12.7)
[2020-05-24 10:26] LABS: D Dimer 252 ng/mL (<230); PTT Partial Thromboplastin Tim 51 SECONDS (26.4-36.2)
[2020-05-24 10:28] LABS: Alanine Aminotransferase 27 IU/L (<35); Albumin 4.3 g/dL (3.5-5.0); Albumin Globulin Ratio 1.5 (1.0-2.8); Alkaline Phosphatase 82 U/L (38-126); Aspartate Aminotransferase 40 IU/L (14-36); BUN Creatinine Ratio 60.9 (6-22); Bilirubin Total 0.4 mg/dL (0.2-1.3); Blood Urea Nitrogen 28 mg/dL (7-17); Calcium 9.2 mg/dL (8.4-10.2); Carbon Dioxide 28 mmol/L (22-32); Chloride 106 mmol/L (98-107); Creatine Kinase 60 U/L (30-135); Estimated Glomerular Filt Rate > 60.0 mL/min (>60); Globulin 2.9 g/dL (1.7-4.1); Glucose 122 mg/dL (80-110); HEMOLYSIS 31 (0-50); Lipase 63 U/L (23-300); Potassium 4.4 mmol/L (3.4-5.1); Sodium 139 mmol/L (137-145); Total Protein 7.2 g/dL (6.3-8.2)
[2020-05-24] MEDS: SODIUM CHLORIDE 0.9% 1,000 ML 150 ML IV (10:33)
[2020-05-24] MEDS: ASPIRIN 81 MG CHEW TAB 161 MG PO (10:33)
[2020-05-24 10:35] LABS: COVID19 -Nasal RAPID Negative (Negative)
[2020-05-24 10:39] LABS: NT-proBNP (BNP-Adult 18+) 2140 pg/mL (<450); Troponin I < 0.012 ng/mL (0.01-0.034)
[2020-05-24 10:44] LABS: Procalcitonin < 0.05 ng/mL (<0.5)
--- NOTE | 2020-05-24 11:20 | DI.CT.S_ITS ---
PROCEDURE: CT ANGIO CHEST PE PROTOCOL INDICATIONS: chf, chest pain, hx lymphoma and lung ca treated, + port TECHNIQUE: After the administration of intravenous contrast, 2 mm thick sections acquired from the pulmonary apices to the posterior costophrenic angles. 3-dimensional maximum intensity projection (MIP) coronal and sagittal reformats were then acquired through the thorax. For radiation dose reduction, the following was used: automated exposure control, adjustment of mA and/or kV according to patient size. COMPARISON: [facility], CT, CHEST ABDOMEN WITH CONTRAST, 07/27/2009, 9:48. [facility], CT, THORAX WITH CONTRAST, 06/06/2008, 9:08. [facility], CT, CT CHEST ABD PEL W CON, 12/31/2018, 14:29. FINDINGS: Image quality: Excellent. Pulmonary arteries: Pulmonary arteries are normal in size, and demonstrate no intraluminal filling defects to suggest central pulmonary embolism. Lungs and pleura: Postoperative changes seen, with partial left pneumonectomy, with a staple line seen within the left infrahilar region posteriorly. There is a small right-sided pleural effusion. A small left-sided pleural effusion is seen, with partial loculation superiorly and posteriorly. Mild dependent atelectasis is seen. No felipe focal infiltrates are seen. No pneumothorax is seen. The central airways are patent. Mediastinum: Heart size is mildly enlarged, without pericardial effusion. No mediastinal or hilar adenopathy. Thoracic aorta is normal in caliber and enhancement. Esophagus is normal in caliber, without hiatal hernia. Bones and chest wall: No suspicious bony lesions. Ribs and thoracic spine appear intact throughout. Thyroid gland is small in size. No axillary or supraclavicular adenopathy. Note is made of a prominent right jugular vein, which is similar to the prior in 2019 and not regarded to be pathologic. A right-sided chest port is seen. Abdomen: Visualized upper abdominal solid organs appear normal in the early arterial phase of enhancement. IMPRESSION: Negative for pulmonary embolism. Small bilateral pleural effusions are seen, with partial loculation seen on the left. Prior left partial pneumonectomy, with an infrahilar staple line seen. No enlarged lymph nodes are seen. Mild cardiomegaly. Incidental note is made of: Prominent right jugular vein Right-sided chest port Dictated by: Genaro Marquez M.D. on 05/24/2020 at 11:04 Approved by: Genaro Marquez M.D. on 05/24/2020 at 11:10
[2020-05-24] MEDS: FUROSEMIDE 100 MG/10 ML VIAL 60 MG IV (11:40)
[2020-05-24] MEDS: NITROGLYCERIN 0.4 MG SL TAB SL (13:21)
[2020-05-24] MEDS: TIZANIDINE 4 MG TABLET 2 MG PO (14:25)
[2020-05-24 14:59] LABS: Troponin I < 0.012 ng/mL (0.01-0.034)
[2020-05-24] MEDS: SODIUM CHLORIDE 0.9% 1,000 ML 125 ML IV (15:04)
--- NOTE | 2020-05-24 15:10 | PC.NURSE ---
at approx 1443 the Patient was in room 4 and began having cramps in her legs and beneath her breasts. At the same time the monitor at the nursing stating went off and was showing vtach. I entered the room and the patient was sitting at the bedside and appeared to be in distress. Dr Christie arrived shortly after and we immediately began assessing the patient. We moved her into a room with more space Rm 1. She was given an additional IV and her heart rate converted back to sinus rhythm. The patient is resting and reports no pain or discomfort or cramps
[2020-05-24] MEDS: AMIODARONE 150 MG/3 ML VIAL 300 MG IV (15:27)
[2020-05-24] MEDS: AMIODARONE 360 MG/200 ML PIGGYBACK 33.33 MG IV (16:27)
== END 2020-05-24 18:31 | disposition short-term general hospital (02) ==
PROVIDERS: Emergency Provider Emergency Medicine; Family Provider Internal Medicine; PCP Internal Medicine
DX: I11.0 Hypertensive heart disease with heart failure (principal); I50.9 Heart failure, unspecified; J90 Pleural effusion, not elsewhere classified; I48.91 Unspecified atrial fibrillation; Z79.01 Long term (current) use of anticoagulants; R00.0 Tachycardia, unspecified; R06.02 Shortness of breath; R51.9 Headache, unspecified; R05 Cough; R11.0 Nausea; R19.7 Diarrhea, unspecified; E03.9 Hypothyroidism, unspecified; E78.5 Hyperlipidemia, unspecified
CPT/HCPCS: 36415; 71045; 71275; 80053; 82550; 83690; 83880; 84145; 84484; 85025; 85379; 85610; 85730; 87635; 93005; 96361; 96365; 96366; 96375; 99284; 99291; J0282; J1940; Q9967

== ENCOUNTER → 2020-06-16 12:37 | Outpatient (CLI) | payer MEDICARE, OTHER, SELFPAY ==
--- NOTE | 2020-06-16 | DI.RAD.S_ITS ---
PROCEDURE: XR HAND RT MIN 3V INDICATIONS: PAIN OF RIGHT THUMB TECHNIQUE: 3 views of the hand(s) acquired. COMPARISON: [facility], CR, XR HAND RT MIN 3V, 03/22/2020, 12:05. FINDINGS: Bones: No fracture. Diffuse interphalangeal joint degeneration. First CMC and triscaphe joint degeneration, severe. Bulky osteophyte formation at the 1st MCP joint. Soft tissues: No suspicious soft tissue calcifications. IMPRESSION: Severe joint degeneration as above. Overall, no interval change since 03/22/20 Dictated by: Low Ny M.D. on 06/16/2020 at 14:10 Approved by: Low Ny M.D. on 06/16/2020 at 14:13
== END ==
PROVIDERS: Family Provider Internal Medicine; PCP Internal Medicine; Referring Provider Internal Medicine; Visit Provider Internal Medicine
DX: M79.644 Pain in right finger(s) (principal); M19.041 Primary osteoarthritis, right hand
CPT/HCPCS: 73130

== ENCOUNTER → 2020-07-22 13:59 | Outpatient (CLI) | payer MEDICARE, OTHER, SELFPAY ==
--- NOTE | 2020-07-22 | DI.MRI.S_ITS ---
PROCEDURE: MR HEAD/BRAIN WO/W CON INDICATIONS: Other symptoms and signs involving cognitive funct TECHNIQUE: Noncontrast axial T1 spin echo, axial T2 fast spin echo, sagittal and axial FLAIR, coronal T2 fast spin echo, axial gradient echo, axial diffusion and ADC through the brain. After the administration of contrast, axial and coronal T1 spin echo with fat saturation through the brain. COMPARISON: None. FINDINGS: Image quality: Excellent. CSF spaces: Basal cisterns are patent. No extra-axial fluid collections. Ventricles are normal in size and shape. Brain: No midline shift. No intracranial bleeds or masses. No abnormal intracranial enhancement. There is cerebral volume loss for age. There is periventricular white matter chronic small vessel ischemic change. The brainstem appears normal. Diffusion-weighted images demonstrate no acute ischemic insults. No chronic ischemic insults. Normal intravascular flow voids are present. Skull and face: Calvarial marrow is normal in signal. Orbits appear normal. Sinuses: Sinuses and mastoids appear clear. IMPRESSION: No evidence of acute ischemia. No acute intracranial signal abnormality or enhancement. Dictated by: Low Ny M.D. on 07/22/2020 at 15:06 Approved by: Low Ny M.D. on 07/22/2020 at 15:18
== END ==
PROVIDERS: Family Provider Internal Medicine; PCP Internal Medicine; Referring Provider Internal Medicine; Visit Provider Internal Medicine
DX: R41.89 Other symptoms and signs involving cognitive functions and awareness (principal)
CPT/HCPCS: 70553; A9579

== ENCOUNTER → 2022-04-26 10:12 | Outpatient (CLI) | payer MEDICARE, OTHER, SELFPAY ==
[2022-04-26 12:38] LABS: COVID19 -Nasal RAPID Negative (Negative)
== END ==
PROVIDERS: Family Provider Internal Medicine; PCP Internal Medicine; Visit Provider Surgery
DX: Z20.822 Contact with and (suspected) exposure to COVID-19 (principal); Z01.812 Encounter for preprocedural laboratory examination
CPT/HCPCS: 87635; C9803

== ENCOUNTER 2022-04-27 10:12 | Day surgery (SDC) | payer MEDICARE, OTHER, SELFPAY ==
--- NOTE | 2022-04-27 | PATH_ITS ---
[facility] Accession Number: [id number] . 01 Material submitted: . gastrointestinal site - GASTRIC BIOPSIES . 01 Clinical history: . R/O H.PYLORI . 01 Diagnosis: Stomach, Biopsies: Gastric antral mucosa with no diagnostic abnormality. No evidence of Helicobacter organisms on H/E stain. Negative for intestinal metaplasia. Negative for dysplasia or malignancy. MRV 04/29/2022 1540 Local . 01 Electronically signed: . Zack Chanel MD, PhD, Pathologist NPI- [id number] . 01 Gross description: . GASTRIC BIOPSIES: Received in formalin is 1 fragment(s) of castañeda, soft tissue measuring 0.3 x 0.3 x 0.2 cm submitted entirely in 1 cassette(s) /CPE 04/28/2022 0927 Local . 01 Pathologist provided ICD-10: Z80.0, R10.13 . 01 CPT . 386929 Specimen Comment: A courtesy copy of this report has been sent to [phone] Performed at: 01 [facility] [address] [place] [address] [id number] MD Lawrence Loza MD Phone: [phone]
[2022-04-27 10:39] VITALS: BP 140/77; PULSE 83; RESP 16; TEMP 36.6; O2SAT 100; BMI 48.8
[2022-04-27] MEDS: SODIUM CHLORIDE 0.9% 1,000 ML 84 ML IV (10:48)
--- NOTE | 2022-04-27 10:57 | PM.HP.1 ---
History of Present Illness History of Present Illness Chief complaint: EGD/COLONOSCOPY W/POSS BX'S Narrative: GE reflux and possible history of colon cancer in the family Patient History Family & Social History Social History: household members spouse Tobacco & Substance use: Smoking Status Never smoker alcohol intake frequency 0-2 drinks per day Substance Use Type does not use Meds Home Medications and Allergies Home Medications Medication Instructions Recorded Confirmed Type [OXYCODONE] See Rx Instructions .Route 03/13/16 04/27/22 History .COMPLEX ##0 hydrocodone 7.5 mg-acetaminophen 1 tab PO Q4HP PRN Pain (Scale 03/13/16 04/27/22 History 325 mg tablet Score 1-3) #0 tabs sertraline 50 mg tablet 100 mg PO QDAY #0 tabs 03/13/16 04/27/22 History prochlorperazine maleate 5 mg 5 mg PO PRN PRN Nausea ##0 05/30/16 04/27/22 History tablet (Compazine) prochlorperazine maleate 5 mg 5 mg PO PRN PRN nausea ##0 05/30/16 04/27/22 History tablet (Compazine) dextroamphetamine-amphetamine 10 10 mg PO BID 05/24/20 04/27/22 History mg tablet apixaban 5 mg tablet (Eliquis) 5 mg PO BID 04/27/22 04/27/22 History flecainide 50 mg tablet 50 mg PO BID 04/27/22 04/27/22 History metoprolol tartrate 25 mg tablet See Rx Instructions .Route .COMPLEX 04/27/22 04/27/22 History Allergies Allergy/AdvReac Type Severity Reaction Status Date / Time Sulfa (Sulfonamide Allergy Severe RASH Verified 05/24/20 17:49 Antibiotics) [SULFA (SULFONAMIDE ANTIBIOTICS)] doxycycline [DOXYCYCLINE] Allergy Mild RASH Verified 05/24/20 17:46 ondansetron Allergy Mild HALLUNCINAT Verified 05/24/20 17:46 [From ZOFRAN ( IONS HYDROCHLORIDE)] Penicillins Allergy Hallucinati Verified 04/27/22 10:29 ng clarithromycin AdvReac Verified 05/24/20 17:46 nitrofurantoin AdvReac Verified 05/24/20 17:47 Exam Vital Signs (past 8 hours): - 04/27/22 10:39 Temperature 97.9 F Pulse Rate 83 Respiratory Rate 16 Blood Pressure 140/77 Pulse Oximetry 100 Oxygen Delivery Method Room Air Oxygen Flow Rate 0 Oxygen Delivery Method Room Air Oxygen Flow Rate 0 Narrative Exam Narrative: Oropharynx free of lesions Chest clear to auscultation and percussion Cardiac exam reveals no S3 or murmur Assessment & Plan Assessment & Plan narrative: Possible family history of colon cancer need for colonoscopy. Also history of GE reflux need to assess for Ricardo's esophagus and erosive esophagitis. Risks, benefits, alternatives have been explained. Time Spent With Patient Critical Care time: I spent a total of [] minutes of critical care time on this patient's care today; this time is exclusive of procedural time.
--- NOTE | 2022-04-27 11:12 | PM.OP.EC ---
Operative Date/Time/Diagnoses Date of procedure: 04/27/22 Pre-op diagnosis: See indication and findings Procedure & Clinicians Study performed: EGD and colonoscopy Indications: GE reflux and possible family history of colon cancer Surgeon: Rocio Park Procedure Notes Procedure in detail: After informed consent was obtained the patient was placed left lateral decubitus position. The video upper scope was placed into the oropharynx and with the patient help swallowed into the esophagus. The esophagus stomach and duodenum were carefully examined and on withdrawal retroflexed view the GE junction was performed. The scope was removed. The patient tolerated procedure well. The patient was then turned and the colonoscope substituted. This was introduced in the rectum and easily passed cecum. Preparation was good. On slow withdrawal mucosa was carefully examined. The scope was removed. The patient tolerated procedure well. Blood loss none Complications none Sedation propofol Findings EGD 1. Normal esophagus. While the squamocolumnar junction was irregular none of it ever came above the top of the G folds. 2. Some scattered hematin flecks in the upper stomach with streaky erythema in the distal stomach. Biopsies taken to rule out Helicobacter 3. Normal duodenal bulb and sweep Colonoscopy 1. Normal colonoscopy to cecum Patient should follow-up with GI on a as needed basis. She needs no further screening of her esophagus and stomach. Follow-up colonoscopy should be done only for symptoms or findings
[2022-04-27 11:54] VITALS: BP 123/57; PULSE 64; RESP 98; TEMP 36.2; O2SAT 99
[2022-04-27 11:59] VITALS: BP 147/67; PULSE 74; RESP 12; O2SAT 99
[2022-04-27 12:04] VITALS: BP 147/63; PULSE 76; RESP 15; O2SAT 99
[2022-04-27 12:09] VITALS: BP 145/60; PULSE 62; RESP 13; O2SAT 99
[2022-04-27 12:15] VITALS: BP 147/64; PULSE 85; RESP 12; TEMP 36.8; O2SAT 98
== END 2022-04-27 12:46 | disposition home or self-care (01) ==
PROVIDERS: Family Provider Internal Medicine; PCP Internal Medicine; Referring Provider Internal Medicine Gastroenterology; Visit Provider Internal Medicine Gastroenterology
PROC: 0DJD8ZZ Inspection of Lower Intestinal Tract, Via Natural or Artificial Opening Endoscopic (ICD-10-PCS; CPT 45378; principal; 2022-04-27 10:30)
PROC: 0DJ08ZZ Inspection of Upper Intestinal Tract, Via Natural or Artificial Opening Endoscopic (ICD-10-PCS; CPT 43235; 2022-04-27 10:30)
DX: Z12.11 Encounter for screening for malignant neoplasm of colon (principal); Z80.0 Family history of malignant neoplasm of digestive organs; K21.9 Gastro-esophageal reflux disease without esophagitis; E03.9 Hypothyroidism, unspecified
CPT/HCPCS: 43239; G0105; J2704; J3010

== ENCOUNTER → 2022-07-25 10:11 | Outpatient (CLI) | payer MEDICARE, OTHER, SELFPAY ==
--- NOTE | 2022-07-25 | DI.RAD.S_ITS ---
PROCEDURE: XR SHOULDER RT MIN 2V INDICATIONS: Pain in right shoulder TECHNIQUE: 3 views of the shoulder were acquired. COMPARISON: [facility], CT, CT ANGIO CHEST PE PROTOCOL, 05/24/2020, 11:21. [facility], CR, XR CHEST 1V, 05/24/2020, 11:07. FINDINGS: Bones: No fractures or dislocations. Superior alignment of the distal clavicle in relation to the acromion. Widening of the AC joint interval. Moderate degenerative changes. No suspicious bony lesions. Visualized ribs appear intact. Soft tissues: No suspicious soft tissue calcifications. Right-sided port. Suture material is seen. IMPRESSION: Moderate right shoulder DJD. Widening of the AC joint interval. Dictated by: Carlos Day M.D. on 07/25/2022 at 14:37 Approved by: Carlos Day M.D. on 07/25/2022 at 14:40
== END ==
PROVIDERS: Family Provider Internal Medicine; PCP Internal Medicine; Referring Provider Internal Medicine; Visit Provider Internal Medicine
DX: M19.011 Primary osteoarthritis, right shoulder (principal); M25.511 Pain in right shoulder; G89.29 Other chronic pain
CPT/HCPCS: 73030

== ENCOUNTER → 2023-01-06 14:00 | Outpatient (CLI) | payer MEDICARE, OTHER, SELFPAY ==
--- NOTE | 2023-01-06 14:03 | DI.US.S_ITS ---
PROCEDURE: US ABDOMEN COMPLETE INDICATIONS: CHRONIC FATIGUE TECHNIQUE: Real-time scanning was performed of the abdominal and retroperitoneal organs, with image documentation. COMPARISON: [facility], CT, CT CHEST ABD PEL W CON, 12/31/2018, 14:29. FINDINGS: Liver: Liver is normal in size and homogeneous in echotexture. There is a 1.9 x 1.8 x 1.7 cm right hepatic lobe cyst, similar to that seen on comparison CT. Gallbladder: Gallbladder is normal in sonographic appearance without gallstones, gallbladder wall thickening, pericholecystic fluid, or abnormal sonographic Soni's. Biliary ducts: Intrahepatic bile ducts are non-dilated. Extrahepatic bile duct caliber measures 5 mm. Normal is 6-7 mm or less in diameter, or 10 mm or less post-cholecystectomy. Pancreas: Visualized portions of the pancreas are sonographically normal. Spleen: Spleen is normal in size and homogeneous in echotexture. Kidneys: Kidneys are normal in size and echotexture. Right kidney measures 10.3 cm long; left kidney measures 9.5 cm long. No hydronephrosis or nephrolithiasis. No solid masses. There is a 2.5 x 2.3 x 2.0 cm left renal pelvic cyst. This was seen on comparison CT. Aorta: Visualized aorta is normal in caliber at less than 3 cm. Iliacs: Proximal common iliac arteries are normal in caliber at less than 2.5 cm. IVC: Intrahepatic inferior vena cava is patent. Miscellaneous: No free abdominal fluid. IMPRESSION: Abdomen without acute sonographic abnormalities. Chronic findings as above. Dictated by: Serge Palmer M.D. on 01/06/2023 at 16:09 Approved by: Serge Palmer M.D. on 01/06/2023 at 16:12
== END ==
PROVIDERS: Family Provider Internal Medicine; PCP Internal Medicine; Referring Provider Physician Assistant; Visit Provider Physician Assistant
DX: R53.83 Other fatigue (principal)
CPT/HCPCS: 76700

== ENCOUNTER 2023-07-31 11:07 | Day surgery (SDC) | payer MEDICARE, OTHER, SELFPAY ==
[2023-07-31] VITALS (8 sets, daily range): BP systolic 96–133; BP diastolic 52–67; PULSE 57–75; RESP 13–20; TEMP 36.8–36.9; O2SAT 99–100
--- NOTE | 2023-07-31 | PATH_ITS ---
[facility] Accession Number: [id number] No. of containers..02 Tissue . 01 Material submitted: . PART A: colon - RANDOM COLON PART B: colon - TRANSVERSE . 01 Diagnosis: A. Random Colon, Biopsy: Colonic mucosa with no diagnostic abnormality. Negative for active, chronic, and microscopic colitis. Negative for dysplasia and malignancy. . B. Transverse Colon, Polyp: Sessile serrated adenoma. MRV 08/02/2023 1339 Local . 01 Electronically signed: . Lila Harris MD, Pathologist NPI- [id number] . 01 Gross description: . Part A: RANDOM COLON: Received in formalin is 4 fragment(s) of castañeda, soft tissue measuring 0.2 x 0.1 x 0.1 cm to 0.1 x 0.1 x 0.1 cm submitted entirely in 1 cassette(s) Part B: TRANSVERSE: Received in formalin is 1 fragment(s) of castañeda, soft tissue measuring 0.7 x 0.7 x 0.4 cm submitted entirely in 1 cassette(s) /AAY 08/01/2023 0425 Local . 01 Pathologist provided ICD-10: D12.3 . 01 CPT . 637539, 114758 Specimen Comment: A courtesy copy of this report has been sent to [phone] Performed at: 01 [facility] [address] [place] [id number] MD Lawrence Loza MD Phone: [phone]
--- NOTE | 2023-07-31 11:55 | P.HP_ITS ---
History of Present Illness History of Present Illness Date Patient Seen: 07/31/23 Time Patient Seen: 11:55 Chief complaint: EGD & Colonoscopy Narrative: This is an 82-year-old female with a 5 month history of diarrhea that she attributes to a course of antibiotics. Stool studies have been negative including C diff. She has not really responded to budesonide. She had an EGD and colonoscopy in April of 2022 that were unremarkable. In light of her new symptoms, a repeat upper and lower evaluation have been requested. [facility] Social History household members: spouse Smoking Status: Never smoker Meds Home Medications and Allergies Home Medications Medication Instructions Recorded Confirmed Type hydrocodone 7.5 mg-acetaminophen 1 tab PO Q4HP PRN Pain (Scale 03/13/16 05/22/23 History 325 mg tablet Score 1-3) #0 tabs dextroamphetamine-amphetamine 10 10 mg PO BID 05/24/20 05/22/23 History mg tablet apixaban 5 mg tablet (Eliquis) 5 mg PO BID 04/27/22 05/22/23 History flecainide 50 mg tablet 50 mg PO BID 04/27/22 05/22/23 History ipratropium bromide 42 mcg (0.06 intranasal 05/22/23 05/22/23 History %) nasal spray levothyroxine 125 mcg tablet 125 mcg PO DAILY 05/22/23 05/22/23 History liothyronine 5 mcg tablet 5 mcg PO BID 05/22/23 05/22/23 History metoprolol succinate 25 mg 25 mg PO DAILY 05/22/23 05/22/23 History tablet,extended release 24 hr potassium chloride 10 mEq 10 meq PO DAILY 05/22/23 05/22/23 History tablet,extended release(part/cryst) sertraline 100 mg tablet 100 mg PO DAILY 05/22/23 05/22/23 History Allergies Allergy/AdvReac Type Severity Reaction Status Date / Time Sulfa (Sulfonamide Allergy Severe RASH Verified 05/22/23 13:27 Antibiotics) [SULFA (SULFONAMIDE ANTIBIOTICS)] doxycycline [DOXYCYCLINE] Allergy Mild RASH Verified 05/22/23 13:27 ondansetron Allergy Mild HALLUNCINAT Verified 05/22/23 13:27 [From ZOFRAN ( IONS HYDROCHLORIDE)] Penicillins Allergy Hallucinati Verified 05/22/23 13:27 ng clarithromycin AdvReac Verified 05/22/23 13:27 nitrofurantoin AdvReac Verified 05/22/23 13:27 Review of Systems Review of Systems ROS: Yes All systems reviewed with the patient and are negative except as otherwise documented Exam Const General: cooperative [facility] Head: normal to inspection Eyes General: appearance normal, both eyes and all related structures Neck Neck: normal visual inspection Chest Chest: normal inspection of the chest Resp Effort & Inspection: normal respiratory effort Cardio Rate: regular rate GI Inspection: normal to inspection Skin General: no rashes or lesions noted Neuro General: patient alert and patient awake Extrem General: normal to inspection and no pedal edema Psych Appearance: grossly normal Assessment & Plan Assessment & Plan narrative: 82-year-old female with 5-6 months of diarrhea associated with abdominal pain and nausea. EGD and colonoscopy are pursued today.
--- NOTE | 2023-07-31 11:58 | PM.PREOP ---
Pre-operative Note Interval Note History & Physical reviewed/Exam performed by Physician: Yes Changes to H&P: No ASA Class (for procedural sedation): III
[2023-07-31] MEDS: LACTATED RINGERS 1,000 ML 42 ML IV (12:04)
--- NOTE | 2023-07-31 13:37 | PM.OP.EC ---
Operative Date/Time/Diagnoses Date of procedure: 07/31/23 Time of procedure: 13:38 Pre-op diagnosis: Diarrhea nausea abdominal pain Post-op diagnosis: same Procedure & Clinicians Study performed: 1. Incomplete EGD (aborted) 2. Colonoscopy with hot snare polypectomy and biopsies Same procedure as scheduled: Yes Indications: Diarrhea, abdominal pain, nausea Surgeon: Tor Ocampo Procedure Notes SCOAP/Timeout: Done Procedure in detail: After the risks and benefits were explained, written and verbal informed consent was obtained. The patient was brought into the procedure room and placed into the left lateral decubitus position. Please see anesthesia notes for sedation details. The scope was introduced into the mouth through the bite block and advanced to the posterior oropharynx. Even before I came anywhere near the epiglottis the patient started to cough and developed laryngospasm. She did not respond well to increased sedation. She continued to experience a very reactive upper airway. Anytime the scope was introduced into the oropharynx she would start coughing. With the laryngospasm and sedation, her oxygen saturations temporarily fell and I aborted the notion of any further attempt at upper endoscopy today to allow for recovery of her oxygen saturation. She was temporarily bagged with 100% oxygen and an oral airway in place. She responded promptly to these measures with return of normal pulse ox. Vitals had completely stabilized and we felt that it would be reasonable to continue with the effort to perform the lower exam. The patient was turned around. Digital rectal examination was accomplished. No significant pathology was appreciated. The scope was introduced into the rectum and advanced to the cecum as identified by the appendiceal orifice and ileocecal valve. The terminal ileum was challenging to intubate. I was able to get excellent visualization of the very terminal aspect of the TI which appeared completely normal with well preserved villi. The scope was slowly withdrawn to carefully examine the mucosa for any defects or lesions. Multiple direct views were made through the dentate line for exclusion of pathology. The colon was decompressed the scope removed from the patient who tolerated the procedure well. Pediatric colonoscope Bowel prep adequate Scope withdrawal time: 14 minutes Sedation minutes: 45 Complications: none Impression: 1. EGD: This was aborted after the scope was advanced to the posterior oropharynx only. See above. The patient had an extremely reactive airway and developed intermittent laryngospasm. For safety we did not attempt to pursue completion of the upper endoscopy component today. 2. Terminal ileum: Visually this appeared normal. 3. Colon: The patient had a mildly tortuous colon. No macroscopic colitis identified throughout. Random biopsies were taken for exclusion of microscopic colitis. In the transverse colon there were 2 translucent appearing sessile polyps. These did not appear to be classic tubular adenomas. However I could not exclude the possibility of a serrated adenomatous pathology. Two of these were removed with hot snare ranging in size from 6 mm to 12 mm. There were a couple of other smaller similar translucent sessile polyps in the region of the transverse that were left alone today. No obstructing pathology throughout. Endoscopic diagnosis 1. Aborted EGD attempt 2. Tortuous colon 3. Colon polyps 4. Normal-appearing terminal ileum Post-procedure Plan for aftercare: 1. Await histopathology. 2. Okay to resume Eliquis starting tomorrow. 3. Follow up GI clinic Disposition: PACU
== END 2023-07-31 14:29 | disposition home or self-care (01) ==
PROVIDERS: Family Provider Internal Medicine; PCP Physician Assistant; Referring Provider Internal Medicine Gastroenterology; Visit Provider Internal Medicine Gastroenterology
PROC: 0DJD8ZZ Inspection of Lower Intestinal Tract, Via Natural or Artificial Opening Endoscopic (ICD-10-PCS; CPT 45378; 2023-07-31 12:30)
DX: R10.9 Unspecified abdominal pain (principal); R19.7 Diarrhea, unspecified; R11.0 Nausea; Z53.09 Procedure and treatment not carried out because of other contraindication; J98.01 Acute bronchospasm; D12.3 Benign neoplasm of transverse colon
CPT/HCPCS: 45385; 43235; J1642; J2704

== ENCOUNTER → 2023-10-10 14:06 | Outpatient (CLI) | payer MEDICARE, OTHER, SELFPAY ==
--- NOTE | 2023-10-10 14:10 | DI.CT.S_ITS ---
PROCEDURE: CT SOFT TISSUE NECK W CON INDICATIONS: Localized swelling, mass and lump, neck TECHNIQUE: After the administration of intravenous contrast, 3.0 mm axial sections acquired from the sella to the aortic arch. Additional oblique axial 3.0 mm sections acquired through the pharynx. 3 mm thick coronal and sagittal reformats were generated. For radiation dose reduction, the following was used: automated exposure control. COMPARISON: [facility], CT, SOFT TISSUE NECK W CONTRAST, 07/27/2009, 9:48. FINDINGS: Skull Base: The visualized intracranial contents, skull, and orbits are unremarkable. Visualized paranasal sinuses are clear. Bilateral intra-ocular lens replacements Pharynx and Larynx: The nasopharyngeal airway is patent and midline. Parapharyngeal soft tissues including palatine tonsils and base of the tongue are normal. Retropharyngeal space unremarkable. Normal appearance of the false and true vocal cords. Muscles and Fascial Planes: Fascial planes are well maintained. No abscess or mass lesion. Lymph Nodes: No evidence of adenopathy. Vasculature: Right-sided Port-A-Cath in place Submandibular and Parotid Glands: Normal in size and attenuation. Thyroid: Unremarkable. No enlarged or calcified nodules. Bones: No acute fracture. No osteolytic or blastic lesion is evident. Normal bone mineralization. Degenerative disc disease and arthropathy noted in the cervical spine results in and grade 1 retrolisthesis C5-6 Lung Apices: The visualized lung apices are clear. IMPRESSION: 1. No acute CT findings in the neck. No adenopathy. 2. 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 on 10/10/2023 at 17:40
== END ==
PROVIDERS: Family Provider Internal Medicine; PCP Physician Assistant
DX: R05.3 Chronic cough (principal); R22.1 Localized swelling, mass and lump, neck; M47.812 Spondylosis without myelopathy or radiculopathy, cervical region; M50.30 Other cervical disc degeneration, unspecified cervical region
CPT/HCPCS: 70491; Q9967

== ENCOUNTER → 2023-11-06 11:53 | Outpatient (CLI) | payer MEDICARE, OTHER, SELFPAY ==
--- NOTE | 2023-11-06 11:55 | DI.CT.S_ITS ---
PROCEDURE: CT CHEST ABD PEL W CON INDICATIONS: ADENOCARCINOMA OF LEFT LUNG/NONHODGKINS LYMPHOMA TECHNIQUE: After the administration of intravenous contrast, 5 mm thick sections acquired from the lung apices to the symphysis. 5 mm coronal and sagittal reformats were performed, with additional 7 mm MIP reformats through the lungs. For radiation dose reduction, the following was used: automated exposure control, adjustment of mA and/or kV according to patient size. COMPARISON: [facility], CT, CT CHEST ABD PEL W CON, 12/31/2018, 14:29. FINDINGS: Image quality: Excellent. CHEST: Lower Neck: No enlarged lymph nodes. Thyroid: No thyroid nodules which require sonographic follow up, per consensus guidelines. Axillae: No enlarged lymph nodes. Chest Wall: Right chest wall port tip terminates in the cavoatrial junction. Lungs and Pleura: No pneumothorax or pleural effusions. No consolidation or suspicious nodules. Left lower lobe wedge resection. A few regions of endobronchial secretions. Heart: Heart size is enlarged. No pericardial effusion. Thoracic Vessels: The aorta and pulmonary arteries demonstrate normal size. Mediastinum and Juanita: No enlarged lymph nodes. Esophagus: No wall thickening. No hiatal hernia. ABDOMEN: Liver: No solid mass. Stable benign hepatic cyst. Gallbladder: No radiopaque gallstones or wall thickening. Biliary ducts: No biliary dilation. Pancreas: No ductal dilation. Spleen: Size is within normal limits. Adrenal Glands: No adrenal nodules. Kidneys and Ureters: No hydronephrosis. No solid mass. No complex renal cystic lesion which requires follow up. Stomach and Bowel: Normal colonic caliber, without significant wall thickening. Peritoneum: No abnormal intraperitoneal fluid. No free air. Ventral Wall: No significant ventral hernia. Abdominal Nodes: No retroperitoneal or mesenteric adenopathy by size criteria. Vessels: Aorta and inferior vena cava are normal in size. PELVIS: Pelvic Organs: Unremarkable. Bladder: No bladder wall thickening, accounting for underdistention. Pelvic Nodes: No enlarged lymph nodes. Miscellaneous: No inguinal hernias are seen. Bones: No aggressive osseous abnormality. Diffuse idiopathic skeletal hyperostosis. Degenerative disc disease of the lumbar spine. IMPRESSION: Prior left lower wedge resection, without evidence of local recurrence or measurable disease. Dictated by: Richy Virk M.D. on 11/06/2023 at 14:16 Approved by: Richy Virk M.D. on 11/06/2023 at 14:19
== END ==
PROVIDERS: Family Provider Internal Medicine; PCP Physician Assistant; Referring Provider Internal Medicine Medical Oncology; Visit Provider Internal Medicine Medical Oncology
DX: C34.92 Malignant neoplasm of unspecified part of left bronchus or lung (principal); C85.80 Other specified types of non-Hodgkin lymphoma, unspecified site; I51.7 Cardiomegaly; K76.89 Other specified diseases of liver; M51.36 Other intervertebral disc degeneration, lumbar region; Z95.828 Presence of other vascular implants and grafts
CPT/HCPCS: 71260; 74177; Q9967

== ENCOUNTER 2024-01-24 16:06 | Emergency (ER) | payer MEDICARE, OTHER, SELFPAY ==
[2024-01-24] VITALS (15 sets, daily range): BP systolic 121–149; BP diastolic 59–82; PULSE 64–74; RESP 11–21; TEMP 36.8; O2SAT 97–100
--- NOTE | 2024-01-24 16:25 | DI.RAD.S_ITS ---
PROCEDURE: XR CHEST 1V INDICATIONS: chest pain TECHNIQUE: One view of the chest was acquired. COMPARISON: [facility], CR, XR CHEST 1V, 05/24/2020, 11:07. FINDINGS: Surgical changes and devices: A right port catheter, with tip projecting over the mid SVC. Postsurgical suture line projecting over the left hilar region Lungs and pleura: No dense consolidation or pleural effusion. There is a mild opacity at the left costophrenic angle. Mediastinum: Cardiomediastinal contours are unchanged. Bones and chest wall: Right AC widening again seen. Degenerative changes. IMPRESSION: Mild opacity at the left costophrenic angle may represent atelectasis, scarring, or early airspace disease. Consider future imaging surveillance to assess for resolution. Right port catheter projects over the mid SVC. Dictated by: Dimitrios Pickett M.D. on 01/24/2024 at 17:13 Approved by: Dimitrios Pickett M.D. on 01/24/2024 at 17:14
--- NOTE | 2024-01-24 16:49 | EKG_ITS ---
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
[2024-01-24 17:04] LABS: Add Manual Diff / Slide Review NO; Basophils Absolute Auto 100 /uL (0-100); Basophils Percent Auto 0.8 % (0-2); Eosinophils Absolute Auto 300 /uL (0-450); Eosinophils Percent Auto 3.5 % (2-4); Hematocrit 35.2 % (36-46); Hemoglobin 12.1 g/dL (12.0-16.0); Lymphocytes Absolute Auto 2000 /uL (1100-4500); Lymphocytes Percent Auto 24.8 % (25-40); Mean Corpuscular HGB Conc 34.5 % (30-36); Mean Corpuscular Hemoglobin 31.9 PG (26-34); Mean Corpuscular Volume 92.3 fL (80-100); Monocytes Absolute Auto 1300 /uL (0-900); Monocytes Percent Auto 16.5 % (3-14); Neutrophils Absolute Auto 4300 /uL (1500-7000); Neutrophils Percent Auto 54.4 % (50-75); Platelet Count 213 X10^3/uL (150-400); Red Blood Cell Count 3.81 X10^6/uL (4.0-5.2); Red Cell Distribution Width 13.1 % (11.6-14.8); White Blood Cell Count 7.9 X10^3/uL (4.5-11.0)
[2024-01-24 17:06] LABS: INR 1.1 (0.9-1.3); Prothrombin Time 12.4 SECONDS (9.4-12.5)
[2024-01-24 17:08] LABS: Alanine Aminotransferase 18 IU/L (<35); Albumin 3.8 g/dL (3.5-5.0); Albumin Globulin Ratio 1.4 (1.0-2.8); Alkaline Phosphatase 63 U/L (38-126); Aspartate Aminotransferase 36 IU/L (14-36); BUN Creatinine Ratio 38.3 (6-22); Bilirubin Total 0.4 mg/dL (0.2-1.3); Blood Urea Nitrogen 18 mg/dL (7-17); Calcium 8.8 mg/dL (8.4-10.2); Carbon Dioxide 30 mmol/L (22-32); Chloride 99 mmol/L (98-107); Creatine Kinase 46 U/L (30-135); Estimated Glomerular Filt Rate > 60 mL/min (>60); Globulin 2.7 g/dL (1.7-4.1); Glucose 91 mg/dL (80-110); HEMOLYSIS < 15 (0-50); Lipase 28 U/L (23-300); Magnesium 2.2 mg/dL (1.6-2.3); Potassium 4.3 mmol/L (3.4-5.1); Sodium 134 mmol/L (137-145); Total Protein 6.5 g/dL (6.3-8.2)
[2024-01-24 17:09] LABS: PTT Partial Thromboplastin Tim 32 SECONDS (25.1-36.5)
[2024-01-24 17:20] LABS: NT-proBNP (BNP-Adult 18+) 885 pg/mL (<450); Troponin I < 0.012 ng/mL (0.01-0.034)
[2024-01-24 17:54] LABS: Influenza A - CEPHEID Flu A NEGATIVE (NEGATIVE); Influenza B - CEPHEID Flu B NEGATIVE (NEGATIVE); Respiratory Syncytial Virus Negative (Negative)
[2024-01-24 17:55] LABS: COVID-19 CEPHEID 4-PLEX PCR Negative (Negative)
--- NOTE | 2024-01-24 19:19 | EKG_ITS ---
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
[2024-01-24 20:06] LABS: Troponin I < 0.012 ng/mL (0.01-0.034)
--- NOTE | 2024-01-24 20:23 | ED.CHESTPAIN ---
HPI - Chest Pain General Chief Complaint: Chest Pain Stated Complaint: chest tightness, cold for 2 weeks Time Seen by Provider: 01/24/24 18:03 History of Present Illness HPI narrative: 83-year-old female with history of lung cancer, prior lymphoma as well, right-sided chest Port-A-Cath still in place, has had ongoing chronic cough, it has been productive of white-yellow sputum last 3 days, with central chest discomfort. She takes Eliquis chronic anticoagulation, denies any missed doses. She has no leg pain or swelling symptoms. No injury or trauma. She has no pain to her head, neck, flank, abdomen, pelvis, extremities. She denies fevers or chills. No associated diaphoresis. She has not tried any medications for this. She had a previous prescription of cefpodoxime that she did not feel in November 2023, and has numerous drug allergy including antibiotic allergies. She has had supply of medication with her. Related Data Home Medications Medication Instructions Recorded Confirmed hydrocodone 7.5 mg-acetaminophen 1 tab PO Q4HP PRN Pain (Scale 03/13/16 01/24/24 325 mg tablet Score 1-3) #0 tabs dextroamphetamine-amphetamine 10 10 mg PO BID 05/24/20 01/24/24 mg tablet apixaban 5 mg tablet (Eliquis) 5 mg PO BID 04/27/22 01/24/24 flecainide 50 mg tablet 50 mg PO BID 04/27/22 01/24/24 ipratropium bromide 42 mcg (0.06 intranasal 05/22/23 01/24/24 %) nasal spray levothyroxine 125 mcg tablet 125 mcg PO DAILY 05/22/23 01/24/24 liothyronine 5 mcg tablet 5 mcg PO BID 05/22/23 01/24/24 metoprolol succinate 25 mg 25 mg PO DAILY 05/22/23 01/24/24 tablet,extended release 24 hr potassium chloride 10 mEq 10 meq PO DAILY 05/22/23 01/24/24 tablet,extended release(part/cryst) sertraline 100 mg tablet 100 mg PO DAILY 05/22/23 01/24/24 alprazolam 0.5 mg tablet 0.5 mg PO DAILY 01/24/24 01/24/24 budesonide 3 mg 9 mg PO QAM 01/24/24 01/24/24 capsule,delayed,extended release cholestyramine (with sugar) 4 gram ea PO 01/24/24 01/24/24 powder for susp in a packet ciclopirox 8 % topical solution topical ONCE PM 01/24/24 01/24/24 estradiol 0.5 mg tablet 0.5 mg PO DAILY 01/24/24 01/24/24 fluocinolone acetonide oil 0.01 % drp otic (ear) 01/24/24 01/24/24 ear drops tizanidine 2 mg tablet 2 mg PO ONCE PM PRN muscle spasm 01/24/24 01/24/24 Allergies Allergy/AdvReac Type Severity Reaction Status Date / Time Sulfa (Sulfonamide Allergy Severe RASH Verified 01/24/24 15:45 Antibiotics) [SULFA (SULFONAMIDE ANTIBIOTICS)] doxycycline [DOXYCYCLINE] Allergy Mild RASH Verified 01/24/24 15:45 ondansetron Allergy Mild HALLUNCINAT Verified 01/24/24 15:45 [From ZOFRAN ( IONS HYDROCHLORIDE)] Penicillins Allergy Hallucinati Verified 01/24/24 15:45 ng clarithromycin AdvReac Verified 01/24/24 15:45 nitrofurantoin AdvReac Verified 01/24/24 15:45 Review of Systems Review of Systems Narrative: see HPI Patient History Social History household members: spouse Smoking Status: Never smoker alcohol intake: current Smoking Status: Never smoker alcohol intake frequency: holidays/special occasions only Alcohol type: wine Substance Use Type: does not use Exam Narrative Exam Narrative: GENERAL: Well-developed patient, in mild distress. HEAD: Atraumatic. Normocephalic. EYES: Pupils equal round and reactive. Extraocular motions intact. No scleral icterus. No injection or drainage. ENT: Nose without bleeding, purulent drainage. Throat without erythema, tonsillar hypertrophy or exudate. Airway patent. NECK: Trachea midline. Non tender CARDIOVASCULAR: Regular rate and rhythm without murmurs, gallops, or rubs. RESPIRATORY: Clear to auscultation. Breath sounds equal bilaterally. No wheezes, rales, or rhonchi. GASTROINTESTINAL: Abdomen soft, non-tender, nondistended. EXTREMITIES: No edema or joint tenderness. BACK: Nontender without deformity or crepitance. No flank tenderness. NEURO: AOx3. Nonfocal neuro exam SKIN: No rash or erythema of visible areas Initial Vital Signs Initial Vital Signs: Vital Signs Pulse Oximetry 97 01/24/24 16:11 Course Orders Ordered: ED Orders 01/24/24 19:36 Trop I [Troponin I] Stat Discontinued Medications Heparin Sodium (Porcine) (Heparin 500 Unit/5 Ml Port Flush) 500 unit IV PRN PRN PRN Reason: Flush Last Admin: 01/24/24 21:01 Dose: 500 unit Documented By: MARTHA Vital Signs Vital signs: Vital Signs - 8 hr 01/24/24 19:30 01/24/24 19:30 01/24/24 20:00 Pulse Rate 69 Respiratory Rate 21 Blood Pressure 128/60 130/59 L Pulse Oximetry 98 Oxygen Delivery Method 01/24/24 20:00 01/24/24 20:30 01/24/24 20:30 Pulse Rate 69 64 Respiratory Rate 15 15 Blood Pressure 126/63 Pulse Oximetry 97 97 Oxygen Delivery Method Room Air MDM - Chest Pain Lab Data Attestation: I reviewed the patient's lab results. 01/24/24 16:45 01/24/24 16:45 Labs: Lab Results 01/24/24 01/24/24 01/24/24 Range/Units 16:45 17:01 19:36 WBC 7.9 (4.5-11.0) X10^3/uL RBC 3.81 L (4.0-5.2) X10^6/uL Hgb 12.1 (12.0-16.0) g/dL Hct 35.2 L (36-46) % MCV 92.3 (80-100) fL MCH 31.9 (26-34) PG MCHC 34.5 (30-36) % RDW 13.1 (11.6-14.8) % Plt Count 213 (150-400) X10^3/uL Neut % (Auto) 54.4 (50-75) % Lymph % (Auto) 24.8 L (25-40) % [place] % (Auto) 16.5 H (3-14) % Eos % (Auto) 3.5 (2-4) % Baso % (Auto) 0.8 (0-2) % Neut # (Auto) 4300 (3119-4307) /uL Lymph # (Auto) 2000 (2123-9343) /uL [place] # (Auto) 1300 H (0-900) /uL Eos # (Auto) 300 (0-450) /uL Baso # (Auto) 100 (0-100) /uL PT 12.4 (9.4-12.5) SECONDS INR 1.1 (0.9-1.3) APTT 32 (25.1-36.5) SECONDS Sodium 134 L (137-145) mmol/L Potassium 4.3 (3.4-5.1) mmol/L Chloride 99 (98-107) mmol/L Carbon Dioxide 30 (22-32) mmol/L BUN 18 H (7-17) mg/dL Creatinine 0.47 L (0.52-1.04) mg/dL Estimated GFR > 60 (>60) mL/min BUN/Creatinine Ratio 38.3 H (6-22) Glucose 91 (80-110) mg/dL Calcium 8.8 (8.4-10.2) mg/dL Magnesium 2.2 (1.6-2.3) mg/dL Total Bilirubin 0.4 (0.2-1.3) mg/dL AST 36 (14-36) IU/L ALT 18 (<35) IU/L Alkaline Phosphatase 63 (38-126) U/L Total Creatine Kinase 46 (30-135) U/L Troponin I < 0.012 < 0.012 (0.01-0.034) ng/mL NT-Pro-B Natriuret Pep 885 H (<450) pg/mL Total Protein 6.5 (6.3-8.2) g/dL Albumin 3.8 (3.5-5.0) g/dL Globulin 2.7 (1.7-4.1) g/dL Albumin/Globulin Ratio 1.4 (1.0-2.8) Lipase 28 (23-300) U/L SARS-CoV-2 (PCR) Negative (Negative) Influenza A (RT-PCR) Flu a negative (NEGATIVE) Influenza B (RT-PCR) Flu b negative (NEGATIVE) RSV (PCR) Negative (Negative) Imaging Data Chest x-ray: Radiologist's Impression: [address] [address] XRay Report Signed Patient: Ashleigh Craig MR#: [id number] : 1940 Acct:[id number] Age/Sex: 83 / F Date of Service: 01/24/24 Loc: ED Accession Number: [id number] Procedure: XR chest 1V Ordering Provider: Elvia Christie D.O. PROCEDURE: XR CHEST 1V INDICATIONS: chest pain TECHNIQUE: One view of the chest was acquired. COMPARISON: [facility], , XR CHEST 1V, 05/24/2020, 11:07. FINDINGS: Surgical changes and devices: A right port catheter, with tip projecting over the mid SVC. Postsurgical suture line projecting over the left hilar region Lungs and pleura: No dense consolidation or pleural effusion. There is a mild opacity at the left costophrenic angle. Mediastinum: Cardiomediastinal contours are unchanged. Bones and chest wall: Right AC widening again seen. Degenerative changes. IMPRESSION: Mild opacity at the left costophrenic angle may represent atelectasis, scarring, or early airspace disease. Consider future imaging surveillance to assess for resolution. Right port catheter projects over the mid SVC. Dictated by: Dimitrios Pickett M.D. on 01/24/2024 at 17:13 Approved by: Dimitrios Pickett M.D. on 01/24/2024 at 17:14 ECG Data Attestation: I personally reviewed and interpreted this ECG as follows: Interpretation: Normal sinus rhythm with rate of 65, no obvious ST segment elevation or depression changes. VA 158, QRS 154, QTC 507. [facility] Narrative Medical decision making narrative: 83-year-old female with history of lymphoma and lung cancer, takes chronic Eliquis anticoagulation, with chronic cough that has been productive for the last 3 days, central chest discomfort nonpleuritic. EKG and serial blood tests not suggestive of heart attack. Chest x-ray suspicious for possible early infiltrate. She has numerous drug allergies including doxycycline/tetracycline, also clarithromycin. We discussed CT angiogram chest imaging to look for less likely blood clots to the lung, she does take Eliquis, she declines this test for now, that seems reasonable. She had prescription from November 2023 for cefpodoxime antibiotic course that she did not take, 200 mg twice daily, we will start 1st dose now, encouraged to take 7 day course. Follow up with her PCP advised. Return precautions discussed. Home with family. Critical Care Time Critical Care Time Critical Care Time: Yes Total Critical Care Time: 31 Attestation: The high probability of a clinically significant, sudden or life threatening deterioration of the [cardiopulmonary] system(s) required my full and direct attention, intervention and personal management. The aggregate critical care time was [31] minutes. This time is in addition to time spent performing reported procedures but includes the following: [x] Data Review and interpretation [x] Patient assessment and monitoring of vital signs [x] Documentation [x] Medication orders and management Discharge Plan Departure Patient Disposition: Home Clinical Impression: Chest pain, Pneumonia Activity Restrictions/Additional Instructions: History of lymphoma and lung cancer, chronic Eliquis anticoagulation, recent cough productive, EKG and serial blood tests not suggestive of heart attack at this time, chest x-ray read by Radiology with mention of possible early infiltrate, consider pneumonia as cause of the chest discomfort. Numerous antibiotic drug allergies noted. Advised to take your cefpodoxime prescription that was not filled or taken last month, 200 mg tablets, 1 tablet twice daily for 7 day course for now. Take 1st dose now. We discussed CT chest angiogram imaging to look for blood clots to lungs as another possible cause of your chest pain, less likely with Eliquis but possible, this test was declined for now. Follow up advised with the regular doctor to check your lung exam in your symptoms in the next couple of days. Return earlier to this or nearest emergency department for any change worsening symptoms or concerns prior Prescriptions: No Action potassium chloride 10 mEq tablet,ER particles/crystals 10 meq PO DAILY levothyroxine 125 mcg tablet 125 mcg PO DAILY liothyronine 5 mcg tablet 5 mcg PO BID sertraline 100 mg tablet 100 mg PO DAILY metoprolol succinate 25 mg tablet extended release 24 hr 25 mg PO DAILY ipratropium bromide 42 mcg (0.06 %) spray,non-aerosol intranasal ciclopirox 8 % solution topical ONCE PM estradiol 0.5 mg tablet 0.5 mg PO DAILY alprazolam 0.5 mg tablet 0.5 mg PO DAILY cholestyramine (with sugar) 4 gram powder in packet PO tizanidine 2 mg tablet 2 mg PO ONCE PM PRN (Reason: muscle spasm) fluocinolone acetonide oil 0.01 % drops otic (ear) Patient Comments: [NO ORIGINAL SIG] budesonide 3 mg capsule,delayed,extend.release 9 mg PO QAM hydrocodone-acetaminophen 7.5 MG/325 MG tablet 1 tab PO Q4HP PRN (Reason: Pain (Scale Score 1-3)) Qty: 0 Rx Instructions: am and noon dextroamphetamine-amphetamine 10 mg tablet 10 mg PO BID Patient Comments: TAKE 1 TABLET BY MOUTH TWICE DAILY Rx Instructions: am and noon flecainide 50 mg tablet 50 mg PO BID Eliquis 5 mg tablet 5 mg PO BID Referrals: Priscilla English PA-C [Primary Care Provider] - Stand Alone Forms: Patient Portal/API
== END 2024-01-24 21:09 | disposition home or self-care (01) ==
PROVIDERS: Emergency Medicine; Emergency Provider Emergency Medicine; Family Provider Internal Medicine; PCP Physician Assistant
DX: J18.9 Pneumonia, unspecified organism (principal); R07.9 Chest pain, unspecified; I45.10 Unspecified right bundle-branch block; Z79.01 Long term (current) use of anticoagulants; Z11.52 Encounter for screening for COVID-19
CPT/HCPCS: 0241U; 36415; 71045; 80053; 82550; 83690; 83735; 83880; 84484; 85025; 85610; 85730; 93005; 93010; 99284; J1642

== ENCOUNTER → 2024-03-08 13:43 | Outpatient (CLI) | payer MEDICARE, OTHER, SELFPAY ==
--- NOTE | 2024-03-08 13:45 | DI.CT.S_ITS ---
PROCEDURE: CT CHEST WO CON INDICATIONS: HX OF LUNG CANCER TECHNIQUE: Noncontrast 5 mm thick sections acquired from the pulmonary apices to the posterior costophrenic angles. 1 mm lung window, 5 mm thick coronal and sagittal and 7 mm axial MIP reformats were then acquired. For radiation dose reduction, the following was used: automated exposure control, adjustment of mA and/or kV according to patient size. COMPARISON: [facility], CT, CT CHEST ABD PEL W CON, 11/06/2023, 13:21. FINDINGS: Image quality: Diagnostic. Lower Neck: No enlarged lymph nodes. Thyroid: No thyroid nodules which require sonographic follow up, per consensus guidelines. Axillae: No enlarged lymph nodes. Chest Wall: Right chest wall Port-A-Cath tip is in SVC. Bones: No aggressive appearing bony lesions.. Lungs and Pleura: Again noted is postsurgical changes from prior left lower lobe wedge resection. Dependent atelectasis in posterior medial aspect of bilateral lung bases are seen. No focal infiltrate, pleural effusion or pneumothorax. No suspicious pulmonary nodule is seen. Central and peripheral airway is patent. Heart: Heart size is mildly enlarged, no pericardial effusion. Thoracic Vessels: The aorta and pulmonary arteries demonstrate normal size. Mediastinum and Juanita: No enlarged lymph nodes. Esophagus: No wall thickening. No hiatal hernia. Upper Abdomen: Visualized upper abdomen solid organs and bowel loops appear normal. IMPRESSION: 1. Stable postsurgical changes from prior left lower lobe wedge resection. No evidence of recurrent disease. No suspicious pulmonary nodule. No pleural effusion or pneumothorax. 2. No mediastinal or hilar lymphadenopathy. Dictated by: Severino Lara M.D. on 03/08/2024 at 16:04 Approved by: Severino Lara M.D. on 03/08/2024 at 16:09
== END ==
LOC: CT 13:45
PROVIDERS: Family Provider Internal Medicine; PCP Internal Medicine; Referring Provider Thoracic Surgery (Cardiothoracic Vascular Surgery); Visit Provider Thoracic Surgery (Cardiothoracic Vascular Surgery)
DX: Z85.118 Personal history of other malignant neoplasm of bronchus and lung (principal); Z08 Encounter for follow-up examination after completed treatment for malignant neoplasm
CPT/HCPCS: 71250

== ENCOUNTER → 2024-06-03 17:09 | Outpatient (CLI) | payer MEDICARE, OTHER, SELFPAY | PROVIDERS: Family Provider Internal Medicine; PCP Internal Medicine; Visit Provider Nurse Practitioner Family | DX: J02.9 Acute pharyngitis, unspecified (principal) | CPT/HCPCS: 87070 ==

== ENCOUNTER → 2024-06-21 15:24 | Outpatient (CLI) | payer MEDICARE, OTHER, SELFPAY ==
--- NOTE | 2024-06-21 15:25 | DI.US.S_ITS ---
PROCEDURE: US THYROID INDICATIONS: Left-sided throat/neck pain and swelling TECHNIQUE: Real-time scanning was performed of the thyroid gland, with image documentation. COMPARISON: None. FINDINGS: Thyroid: Right lobe measures 3.9 x 1.1 x 1.0 cm. Left lobe measures 2.7 x 0.8 x 0.8 cm. Isthmus is 0.2 cm thick. Echotexture is heterogeneous. Nodule number: 1 Location: Right lobe Size: 0.9 x 0.3 cm. Composition: Solid Echogenicity: Markedly hypoechoic Shape: wider than tall. Margins: Ill-defined Echogenic foci: None Total points: 5 ACR TI-RADS category: 4 Nodule number: 2 Location: Right lobe Size: 0.6 x 0.6 cm. Composition: Predominantly cystic Echogenicity: Anechoic Shape: wider than tall. Margins: Smooth Echogenic foci: None Total points: 0 ACR TI-RADS category: Benign IMPRESSION: Heterogeneous thyroid of normal of diminished size. No thyroid nodules require scheduled follow-up. Please refer to the chart and definitions below. ACR TI-RADS definitions and recommendations: TI-RADS 1 (benign): 0 points. FNA not needed. TI-RADS 2 (not suspicious): 2 points. FNA not needed. TI-RADS 3: 3 points. * FNA if 2.5 cm or larger, follow up if 1.5 cm or larger (at 1, 3, and 5 years). TI-RADS 4: 4-6 points. * FNA if 1.5 cm or larger, follow up if 1 cm or larger (at 1, 2, 3, and 5 years). TI-RADS 5: 7 points or more. * FNA if 1 cm or larger, follow up if 0.5 cm or larger (every year for 5 years). Dictated by: Markie Block M.D. on 06/22/2024 at 9:01 Approved by: Markie Block M.D. on 06/22/2024 at 9:05
== END ==
LOC: US 15:25
PROVIDERS: Family Provider Internal Medicine; PCP Internal Medicine; Referring Provider Nurse Practitioner Family; Visit Provider Nurse Practitioner Family
DX: J02.9 Acute pharyngitis, unspecified (principal); E04.2 Nontoxic multinodular goiter
CPT/HCPCS: 76536

== ENCOUNTER → 2024-09-19 11:23 | Outpatient (CLI) | payer MEDICARE, OTHER, SELFPAY ==
--- NOTE | 2024-09-19 12:04 | DI.CT.S_ITS ---
PROCEDURE: CT CHEST ABD PEL W CON INDICATIONS: RESTAGING, prior history of adenocarcinoma left lung and non-Hodgkin's lymphoma. TECHNIQUE: After the administration of intravenous contrast, 5 mm thick sections acquired from the lung apices to the symphysis. 5 mm coronal and sagittal reformats were performed, with additional 7 mm MIP reformats through the lungs. For radiation dose reduction, the following was used: automated exposure control, adjustment of mA and/or kV according to patient size. COMPARISON: [facility], CT, CT CHEST ABD PEL W CON, 11/06/2023, 13:21. FINDINGS: Image quality: Excellent. CHEST: Lower Neck: No enlarged lymph nodes. Thyroid: No thyroid nodules which require sonographic follow up, per consensus guidelines. Axillae: No enlarged lymph nodes. Chest Wall: Port-A-Cath from left-sided approach extends with tip in the distal SVC.. Lungs and Pleura: No pneumothorax or pleural effusions. No consolidation or suspicious nodules. Expected postsurgical change of partial left lower lobectomy. Heart: Heart size is normal. No pericardial effusion. Thoracic Vessels: The aorta and pulmonary arteries demonstrate normal size. Mediastinum and Juanita: No enlarged lymph nodes. Esophagus: No wall thickening. No hiatal hernia. ABDOMEN: Liver: No solid mass. Gallbladder: No radiopaque gallstones or wall thickening. Biliary ducts: No biliary dilation. Pancreas: No ductal dilation. Spleen: Size is within normal limits. Adrenal Glands: No adrenal nodules. Kidneys and Ureters: No hydronephrosis. No solid mass. No complex renal cystic lesion which requires follow up. Stomach and Bowel: Normal colonic caliber, without significant wall thickening. Peritoneum: No abnormal intraperitoneal fluid. No free air. Ventral Wall: No significant ventral hernia. Abdominal Nodes: No retroperitoneal or mesenteric adenopathy by size criteria. Vessels: Aorta and inferior vena cava are normal in size. PELVIS: Pelvic Organs: Unremarkable. Bladder: No bladder wall thickening, accounting for underdistention. Pelvic Nodes: No enlarged lymph nodes. Miscellaneous: No inguinal hernias are seen. Bones: No aggressive osseous abnormality. Superior endplate mild chronic appearing and impaction fractures again noted at L2 and L3. IMPRESSION: Stable postsurgical change of partial left lower lobectomy. No evidence of recurrent neoplasm, or evidence of recurrent non-Hodgkin's lymphoma. Dictated by: Clif Wilkins M.D. on 09/20/2024 at 15:15 Approved by: Clif Wilkins M.D. on 09/20/2024 at 15:20
--- NOTE | 2024-09-19 12:05 | DI.CT.S_ITS ---
PROCEDURE: CT SOFT TISSUE NECK W CON INDICATIONS: RESTAGING TECHNIQUE: After the administration of intravenous contrast, 3.0 mm axial sections acquired from the sella to the aortic arch. Additional oblique axial 3.0 mm sections acquired through the pharynx. 3 mm thick coronal and sagittal reformats were generated. For radiation dose reduction, the following was used: automated exposure control. COMPARISON: [facility], CT, CT SOFT TISSUE NECK W CON, 10/10/2023, 15:51. FINDINGS: Image quality: Excellent. Lymph nodes: No enlarged lymph nodes seen throughout the neck. Vessels: Visualized vasculature appears patent. Right chest wall Port-A-Cath. Neck spaces: The oropharynx, nasopharynx, and pharynx demonstrate no mucosal lesions. The vocal cords, false vocal cords, pyriform sinuses, epiglottis, vallecula, and tongue base all appear normal. Extramucosal spaces appear unremarkable. Glands: The parotid and submandibular glands appear normal. Thyroid gland demonstrates no significant abnormality.. Miscellaneous: Visualized brain and orbits appear normal. Lens replacements. Lung apices appear clear, please refer to same day CT of the chest. Superficial soft tissues appear normal. Bones: No suspicious bony lesions. Visualized sinuses and mastoids appear unremarkable. Multilevel degenerative changes of the cervical spine. IMPRESSION: No enlarged cervical lymph nodes or masses are identified. Dictated by: Sage Fontenot M.D. on 09/19/2024 at 15:34 Approved by: Sage Fontenot M.D. on 09/19/2024 at 15:37
[2024-09-19 12:13] LABS: Estimated Glomerular Filt Rate > 60 mL/min (>60)
== END ==
PROVIDERS: Family Provider Internal Medicine; PCP Internal Medicine; Referring Provider Internal Medicine Hematology & Oncology; Visit Provider Internal Medicine Hematology & Oncology
DX: C85.98 Non-Hodgkin lymphoma, unspecified, lymph nodes of multiple sites (principal)
CPT/HCPCS: 70491; 71260; 74177; 82565; Q9967